=== PATIENT | female | born 1980 ===

== ENCOUNTER 2016-10-18 01:02 | Emergency (ER) | payer SELFPAY ==
[2016-10-18 01:13] VITALS: O2SAT 100
--- NOTE | 2016-10-18 01:41 | C.PDOC ---
History Of Present Illness Pt states she had some palpitations tonight. No f/c/n/v. No cp/. Speaking in complete sentences. Feels fine now. Time Seen by Provider: 10/18/16 01:41 Chief Complaint (Nursing): Palpitations History Per: Patient History/Exam Limitations: no limitations Onset/Duration Of Symptoms: Hrs Current Symptoms Are (Timing): Gone Associated Symptoms: Other (palpitations). denies: Chest Pain Quality Of Symptoms: Rapid Heart Rate Severity: Mild Pain Scale Rating Of: 3 Exacerbating Factor(s): Pos: None Recent travel outside of the [place]: No Additional History Per: Patient Past Medical History Reviewed: Historical Data, Nursing Documentation, Vital Signs Vital Signs: Last Vital Signs Temp 98.8 F 10/18/16 01:10 Pulse 80 10/18/16 01:25 Resp 13 10/18/16 01:10 BP 120/60 10/18/16 01:10 Pulse Ox 100 10/18/16 02:50 Family History: States: No Known Family Hx - Social History Hx Alcohol Use: No Hx Substance Use: No - Immunization History Hx Tetanus Toxoid Vaccination: No Hx Influenza Vaccination: No Hx Pneumococcal Vaccination: No Review Of Systems Constitutional: Negative for: Fever, Chills Cardiovascular: Positive for: Palpitations. Negative for: Chest Pain Respiratory: Negative for: Shortness of Breath Gastrointestinal: Negative for: Nausea, Vomiting, Abdominal Pain Genitourinary: Negative for: Dysuria Musculoskeletal: Negative for: Back Pain Skin: Negative for: Rash, Lesions, Jaundice, Bruising Neurological: Negative for: Weakness Psych: Negative for: Anxiety Physical Exam - Physical Exam Appears: Non-toxic, No Acute Distress Skin: Warm, Dry Head: Normacephalic Eye(s): bilateral: Normal Inspection Neck: Supple Chest: Symmetrical Cardiovascular: Rhythm Regular Respiratory: No Rales, No Rhonchi, No Wheezing Gastrointestinal/Abdominal: Soft, No Tenderness, No Distention Back: Normal Inspection Extremity: Normal ROM Extremity: Bilateral: Atraumatic, Normal Color And Temperature Neurological/Psych: Oriented x3, Normal Speech, Normal Cognition Gait: Steady ED Course And Treatment - Laboratory Results Result Diagrams: 10/18/16 02:14 10/18/16 02:14 ECG: Interpreted By Me, Viewed By Me ECG Rhythm: Sinus Rhythm (65), Nonspecific Changes O2 Sat by Pulse Oximetry: 100 Pulse Ox Interpretation: Normal - Radiology CXR: Interpreted by Me, Viewed By Me CXR Interpretation: No: Infiltrates, Fracture, Pnemothorax Progress Note: cardiac work up. Pt also states that she has very heavy periods. Spoke with the patient about her low hemoglobin and she will follow up in clinic. Encouraged to return if symptoms recur Reevaluation Time: 03:56 Reassessment Condition: Improved Disposition Counseled Patient/Family Regarding: Studies Performed, Diagnosis, Need For Followup - Disposition Referrals: [facility] [Outside] [facility] [Outside] Disposition: HOME/ ROUTINE Disposition Time: 01:41 Condition: FAIR Instructions: Palpitations (ED), Iron Deficiency Anemia (ED) Print Language: SAO TOMEAN - Clinical Impression Clinical Impression: Palpitations, Iron (Fe) deficiency anemia
[2016-10-18 02:17] LABS: BASO % 0.4 % (0.0-2.0); EOS # 0.1 K/uL (0.0-0.7); HEMATOCRIT 25.1 % (34.0-47.0); LYMPH % 23.1 % (20.0-40.0); MEAN CELL VOLUME 63.8 fL (81.0-99.0); MEAN CORPUSCULAR HEMOGLOBIN 19.9 pg (27.0-31.0); MEAN CORPUSCULAR HGB CONC 31.2 g/dL (33.0-37.0); MEAN PLATELET VOLUME 9.5 fL (7.2-11.7); MONO # 0.6 K/uL (0.0-0.8); MONO % 6.5 % (0.0-10.0); RED CELL DISTRIBUTION WIDTH 17.9 % (11.5-14.5); WHITE BLOOD COUNT 8.7 K/uL (4.8-10.8)
[2016-10-18 02:18] LABS: URINE BACTERIA RARE (<OCC); URINE BILIRUBIN NEGATIVE (NEGATIVE); URINE BLOOD NEGATIVE (NEGATIVE); URINE COLOR Straw (YELLOW); URINE GLUCOSE (UA) NORMAL (Normal); URINE KETONE NEGATIVE (NEGATIVE); URINE LEUKOCYTE ESTERASE NEG Leu/uL (Negative); URINE PROTEIN NEGATIVE (NEGATIVE); URINE UROBILINOGEN NORMAL mg/dL (0.2-1.0); WBC URINE < 1 /hpf (0-5)
[2016-10-18 02:25] LABS: CHLORIDE 102 mmol/L (98-107); POTASSIUM 3.6 mmol/L (3.6-5.2); SODIUM 141 mmol/L (132-148)
[2016-10-18 02:27] LABS: ALB/GLOB RATIO 1.2 (1.0-2.1); ALKALINE PHOSPHATASE 44 U/L (38-126); AST/SGOT 19 U/L (14-36); BILIRUBIN,TOTAL 0.2 mg/dL (0.2-1.3); CARBON DIOXIDE 25 mmol/L (22-30); GFR AFRICAN-AMERICAN > 60; TOTAL PROTEIN 7.3 g/dL (6.3-8.3)
[2016-10-18 02:28] LABS: ALT/SGPT 30 U/L (9-52); BLOOD UREA NITROGEN 16 mg/dL (7-17); CALCIUM 8.6 mg/dl (8.6-10.4); GLUCOSE,RANDOM 96 mg/dL (65-105)
[2016-10-18 02:58] LABS: THYROID STIMULATING HORMONE 0.65 mIU/L (0.46-4.68)
[2016-10-18 03:59] VITALS: BP 119/82; PULSE 72; RESP 18; TEMP 98.2
--- NOTE | 2016-10-18 08:06 | RAD ---
HISTORY: palpitations COMPARISON: No prior. TECHNIQUE: Chest PA and lateral FINDINGS: LUNGS: No active pulmonary disease. PLEURA: No significant pleural effusion identified. No pneumothorax apparent. CARDIOVASCULAR: Normal. OSSEOUS STRUCTURES: No significant abnormalities. VISUALIZED UPPER ABDOMEN: Normal. OTHER FINDINGS: None. IMPRESSION: No active disease.
--- NOTE | 2016-10-21 09:32 | CARD ---
APPROVED REPORT EKG Measurement Heart [id number] [id number] <Conclusion> Normal sinus rhythm with sinus arrhythmia Abnormal ECG
== END 2016-10-18 04:09 | disposition home or self-care (01) ==
LOC: C.ER 01:02
DX: R00.2 Palpitations (principal); D50.9 Iron deficiency anemia, unspecified

== ENCOUNTER 2016-11-01 19:59 | Emergency (ER) | payer SELFPAY ==
[2016-11-01 20:18] VITALS: RESP 20
--- NOTE | 2016-11-01 20:55 | C.PDOC ---
History Of Present Illness A 36 year old female presents to the emergency room with complaints of lethargy and shortness of breath on minimal exertion for 3 days. Patient was recently evaluated for the same complaints on 10/18/16 and was found to be anemic. Patient was referred to Gynecology after having a heavy menstrual period lasting 6 days and using 10 pads daily since an IUD was placed 5 yrs ago. Patient denies any chest pain, headaches, dizziness, fever, chills, nausea, vomiting, diarrhea, or any other complaints. Time Seen by Provider: 11/01/16 20:32 Chief Complaint (Nursing): Dizziness/Lightheaded History Per: Patient History/Exam Limitations: no limitations Onset/Duration Of Symptoms: Days (3) Current Symptoms Are (Timing): Still Present Activity At Onset Of Symptoms: Exertional Activity Associated Symptoms Preceding Syncopal Episode: No Predromal Symptoms (Sudden Onset) Seizure Or Post-ictal Symptoms: None Fall Associated With With Symptoms: No Severity: Mild Past Medical History Reviewed: Historical Data, Nursing Documentation, Vital Signs Vital Signs: Last Vital Signs Temp 98.8 F 11/01/16 20:15 Pulse 72 11/01/16 20:15 Resp 20 11/01/16 20:15 BP 101/55 L 11/01/16 20:15 Pulse Ox 100 11/01/16 21:57 - Medical History PMH: Anemia Family History: States: Unknown Family Hx - Social History Hx Alcohol Use: No Hx Substance Use: No - Immunization History Hx Tetanus Toxoid Vaccination: No Hx Influenza Vaccination: No Hx Pneumococcal Vaccination: No Review Of Systems Except As Marked, All Systems Reviewed And Found Negative. Constitutional: Positive for: Other (Lethargy). Negative for: Fever, Chills Cardiovascular: Negative for: Chest Pain Respiratory: Positive for: Shortness of Breath Gastrointestinal: Negative for: Nausea, Vomiting, Diarrhea Neurological: Negative for: Headache, Dizziness Physical Exam - Physical Exam Appears: Well, Non-toxic, No Acute Distress Skin: Pale, No Rash Head: Atraumatic, Normacephalic Eye(s): bilateral: Conjunctiva Pale Neck: Normal ROM, Supple Chest: Symmetrical, No Tenderness Cardiovascular: Rhythm Regular Respiratory: Normal Breath Sounds, No Rales, No Rhonchi, No Wheezing Gastrointestinal/Abdominal: Soft, No Tenderness, No Guarding, No Rebound Extremity: Normal ROM, No Tenderness Neurological/Psych: Oriented x3, Normal Speech ED Course And Treatment - Laboratory Results Result Diagrams: 11/01/16 20:52 11/01/16 20:52 Lab Interpretation: Abnormal (hgb/HCT improved from 7.8/25 but still microcytic. Fe 22 (37-120)) ECG: Interpreted By Me ECG Rhythm: Sinus Rhythm ECG Interpretation: Normal Rate From EC O2 Sat by Pulse Oximetry: 100 Pulse Ox Interpretation: Normal - Radiology CXR: Interpreted by Me CXR Interpretation: Yes: No Acute Disease Reevaluation Time: 21:53 Reassessment Condition: Improved - Physician Consult Information Outcome Of Conversation: 2129: d/w Dr. Limon- CAREER TRANSITION SPECIALIST Business Continuity Global Director- translating @ bedside - ok to f/u in office to remove IUD and consider other prophylactic methods and to f/u HGB levels. Will start Fe supplements today Medical Decision Making Medical Decision Making: Plan: -- EKG -- CXR -- Labs Menometrorraghia causing Fe Def anemia. IMPROVED from 2 weeks ago. Disposition Doctor Will See Patient In The: Office Counseled Patient/Family Regarding: Studies Performed, Diagnosis - Disposition Referrals: [facility] [Outside] [facility] [Outside] Neftaly Red MD [Staff Provider] - Disposition: HOME/ ROUTINE Disposition Time: 21:57 Condition: GOOD Additional Instructions: Presenta en la oficina con Dr. Braxton benavides (el viernes) a las de . Natalie el Leonor 325 mg CONSUELO veces al larry. Natalie Colace 100 mg (esuavesante de los heces) dos veces al larry (para prevenir estrenemiento debido al leonor) Wright Hemoglobina esta en 8.9 hoy (era 7.8 hace 2 semanas) Prescriptions: Docusate [Colace] 100 mg PO BID #60 cap Ferrous Sulfate [Iron] 325 mg PO TID #90 capsule.er Instructions: Iron Deficiency Anemia (ED), Menorrhagia (ED) Print Language: SLOVENIAN - Clinical Impression Clinical Impression: Iron (Fe) deficiency anemia, Menometrorrhagia - Scribe Statement The provider has reviewed the documentation as recorded by the Scribe Eric Lee All medical record entries made by the Scribe were at my direction and personally dictated by me. I have reviewed the chart and agree that the record accurately reflects my personal performance of the history, physical exam, medical decision making, and the department course for this patient. I have also personally directed, reviewed, and agree with the discharge instructions and disposition.
[2016-11-01 20:58] LABS: BASO # 0.1 K/uL (0.0-0.2); BASO % 0.5 % (0.0-2.0); EOS # 0.1 K/uL (0.0-0.7); EOS % 0.8 % (0.0-4.0); HEMATOCRIT 30.1 % (34.0-47.0); LYMPH # 2.4 K/uL (1.0-4.3); LYMPH % 22.8 % (20.0-40.0); MEAN CELL VOLUME 65.1 fL (81.0-99.0); MEAN CORPUSCULAR HEMOGLOBIN 19.3 pg (27.0-31.0); MEAN CORPUSCULAR HGB CONC 29.7 g/dL (33.0-37.0); MEAN PLATELET VOLUME 9.8 fL (7.2-11.7); MONO # 0.6 K/uL (0.0-0.8); MONO % 5.4 % (0.0-10.0); RED CELL DISTRIBUTION WIDTH 20.4 % (11.5-14.5); WHITE BLOOD COUNT 10.7 K/uL (4.8-10.8)
[2016-11-01 21:04] LABS: RBC URINE < 1 /hpf (0-3); URINE BACTERIA RARE (<OCC); URINE BILIRUBIN NEGATIVE (NEGATIVE); URINE BLOOD NEGATIVE (NEGATIVE); URINE COLOR Straw (YELLOW); URINE GLUCOSE (UA) NORMAL (Normal); URINE KETONE NEGATIVE (NEGATIVE); URINE LEUKOCYTE ESTERASE NEGATIVE Leu/uL (Negative); URINE PROTEIN NEGATIVE (NEGATIVE); URINE UROBILINOGEN NORMAL mg/dL (0.2-1.0); WBC URINE 4 /hpf (0-5)
[2016-11-01 21:05] LABS: CHLORIDE 100 mmol/L (98-107); POTASSIUM 3.8 mmol/L (3.6-5.2); SODIUM 135 mmol/L (132-148)
[2016-11-01 21:07] LABS: BILIRUBIN,TOTAL 0.2 mg/dL (0.2-1.3); GFR AFRICAN-AMERICAN > 60; IRON 22 ug/dL (37-170)
[2016-11-01 21:08] LABS: ALB/GLOB RATIO 1.3 (1.0-2.1); ALKALINE PHOSPHATASE 49 U/L (38-126); ALT/SGPT 15 U/L (9-52); AST/SGOT 15 U/L (14-36); BLOOD UREA NITROGEN 10 mg/dL (7-17); CARBON DIOXIDE 21 mmol/L (22-30); GLUCOSE,RANDOM 97 mg/dL (65-105); TOTAL PROTEIN 7.9 g/dL (6.3-8.3)
[2016-11-01 21:09] LABS: CALCIUM 8.5 mg/dl (8.6-10.4)
[2016-11-01 22:14] VITALS: BP 118/72; PULSE 85; TEMP 98; O2SAT 99
--- NOTE | 2016-11-02 08:25 | RAD ---
PROCEDURE: CHEST RADIOGRAPH, 1 VIEW HISTORY: Shortness of breath COMPARISON: None available. FINDINGS: LUNGS: Clear. PLEURA: No pneumothorax or pleural fluid seen. CARDIOVASCULAR: Normal. OSSEOUS STRUCTURES: No significant abnormalities. VISUALIZED UPPER ABDOMEN: Normal. OTHER FINDINGS: None. IMPRESSION: No active disease.
--- NOTE | 2016-11-03 06:30 | CARD ---
APPROVED REPORT EKG Measurement Heart [id number] MT 128P54 [id number] <Conclusion> Normal sinus rhythm Cannot rule out Anterior infarct, age undetermined Abnormal ECG
== END 2016-11-01 22:14 | disposition home or self-care (01) ==
LOC: C.ER 19:59
DX: D50.9 Iron deficiency anemia, unspecified (principal); N92.1 Excessive and frequent menstruation with irregular cycle
CPT/HCPCS: 71010; 80053; 81001; 83540; 83550; 83880; 84484; 84703; 85025; 85610; 85730; 86850; 86900; 93005; 99285; G0480

== ENCOUNTER 2016-11-08 10:22 | Emergency (ER) | payer MEDICAID ==
[2016-11-08 10:34] VITALS: O2SAT 100
[2016-11-08 11:31] LABS: BASO % 0.5 % (0.0-2.0); EOS # 0.1 K/uL (0.0-0.7); EOS % 0.7 % (0.0-4.0); HEMATOCRIT 31.8 % (34.0-47.0); LYMPH # 1.4 K/uL (1.0-4.3); LYMPH % 15.8 % (20.0-40.0); MEAN CORPUSCULAR HEMOGLOBIN 20.6 pg (27.0-31.0); MEAN PLATELET VOLUME 9.9 fL (7.2-11.7); MONO # 0.6 K/uL (0.0-0.8); MONO % 7.1 % (0.0-10.0); RED CELL DISTRIBUTION WIDTH 19.8 % (11.5-14.5); WHITE BLOOD COUNT 8.6 K/uL (4.8-10.8)
[2016-11-08 11:32] LABS: MEAN CELL VOLUME 68.7 fL (81.0-99.0)
--- NOTE | 2016-11-08 11:44 | RAD ---
PROCEDURE: CHEST RADIOGRAPH, 1 VIEW HISTORY: chest pain COMPARISON: 11/01/2016 FINDINGS: LUNGS: Clear. PLEURA: No pneumothorax or pleural fluid seen. CARDIOVASCULAR: Normal. OSSEOUS STRUCTURES: No significant abnormalities. VISUALIZED UPPER ABDOMEN: Normal. OTHER FINDINGS: None. IMPRESSION: No active disease.
--- NOTE | 2016-11-08 11:50 | C.PDOC ---
History Of Present Illness Patient is 36 yr old female with PMHx of anemia, presents to the ER with complaints of palpitations and SOB 4x since morning. Patient states she had similar symptoms in the past about 1 month ago--was told that her symptoms were secondary to anemia. Patient reports she is on the depo shot. Patient denies fever, chest pain, nausea, vomiting, abdominal pain, diarrhea, back pain, headache, weakness or numbness. Time Seen by Provider: 11/08/16 10:56 Chief Complaint (Nursing): Shortness Of Breath History Per: Patient History/Exam Limitations: no limitations Onset/Duration Of Symptoms: Sudden Onset (Since morning ) Past Medical History Reviewed: Historical Data, Nursing Documentation, Vital Signs Vital Signs: Last Vital Signs Temp 98.0 F 11/08/16 13:24 Pulse 88 11/08/16 13:24 Resp 16 11/08/16 13:24 BP 109/47 L 11/08/16 13:24 Pulse Ox 100 11/08/16 13:24 - Medical History PMH: Anemia Family History: States: Diabetes, Hypertension - Social History Hx Alcohol Use: No Hx Substance Use: No - Immunization History Hx Tetanus Toxoid Vaccination: Yes Hx Influenza Vaccination: No Hx Pneumococcal Vaccination: No Review Of Systems Except As Marked, All Systems Reviewed And Found Negative. Constitutional: Negative for: Fever Cardiovascular: Positive for: Palpitations. Negative for: Chest Pain Respiratory: Positive for: Shortness of Breath Gastrointestinal: Negative for: Nausea, Vomiting, Abdominal Pain, Diarrhea Neurological: Negative for: Weakness, Numbness, Headache Physical Exam - Physical Exam Appears: Well, Non-toxic, In Acute Distress (Mild) Skin: Normal Color, Warm, Dry, No Rash Head: Atraumatic, Normacephalic Eye(s): bilateral: Normal Inspection, PERRL, EOMI Ear(s): Bilateral: Normal Nose: Normal Oral Mucosa: Moist Tongue: Normal Appearing Lips: Normal Appearing Teeth: Normal Dentition Throat: Normal, No Erythema, No Exudate, No Drooling Neck: Normal, Normal ROM, Supple Chest: Symmetrical, No Tenderness Cardiovascular: Rhythm Regular, No Murmur Respiratory: Normal Breath Sounds, No Rales, No Rhonchi, No Stridor, No Wheezing Gastrointestinal/Abdominal: Normal Exam, Soft, No Tenderness, No Guarding, No Rebound Back: Normal Inspection Extremity: Normal ROM, No Swelling Extremity: Bilateral: Atraumatic, Normal ROM Neurological/Psych: Oriented x3 ED Course And Treatment - Laboratory Results Result Diagrams: 11/08/16 11:26 11/08/16 11:26 O2 Sat by Pulse Oximetry: 100 (RA) - Other Rad CXR X-Ray: Viewed By Me, Read By Radiologist Interpretation: PROCEDURE: CHEST RADIOGRAPH, 1 VIEW. HISTORY: chest pain. COMPARISON: 11/01/2016. FINDINGS: LUNGS: Clear. PLEURA: No pneumothorax or pleural fluid seen. CARDIOVASCULAR: Normal. OSSEOUS STRUCTURES: No significant abnormalities. VISUALIZED UPPER ABDOMEN: Normal. OTHER FINDINGS: None. IMPRESSION: No active disease. Medical Decision Making Medical Decision Making: INITIAL IMPRESSION: Palpitations and non-specific chest pain INITIAL PLAN: * CXR * EKG * Drug Screen * Troponin * D-Dimer * CBC * HCG Urine * Urinalysis * 1:14 pm--Pt feels better. Looks well. No Chest Pain. Will d/c home. Disposition Counseled Patient/Family Regarding: Studies Performed, Diagnosis, Need For Followup, Rx Given - Disposition Referrals: [facility] [Outside] Disposition: HOME/ ROUTINE Disposition Time: 13:13 Condition: STABLE Additional Instructions: Marko James, thank you for letting us take care of you today. Return to the ER if your symptoms worsen, or if any problems. Take the medication listed below as prescribed. Follow up with our [facility]. Call the phone number listed below to make an appointment. Prescriptions: Ranitidine HCl [Zantac] 1 tab PO BID #40 tablet Instructions: Chest Pain (ED) Forms: Gen Discharge Inst Mohawk Print Language: SURINAMESE - Clinical Impression Clinical Impression: Chest pain of uncertain etiology - Scribe Statement The provider has reviewed the documentation as recorded by the Victoriaibizabela Reyes Provider Attestation: All medical record entries made by the Victoriaibizabela were at my direction and personally dictated by me. I have reviewed the chart and agree that the record accurately reflects my personal performance of the history, physical exam, medical decision making, and the department course for this patient. I have also personally directed, reviewed, and agree with the discharge instructions and disposition.
[2016-11-08 11:55] LABS: CHLORIDE 106 mmol/L (98-107)
[2016-11-08 11:56] LABS: POTASSIUM 3.8 mmol/L (3.6-5.2); SODIUM 141 mmol/L (132-148)
[2016-11-08 11:58] LABS: ALB/GLOB RATIO 1.4 (1.0-2.1); ALKALINE PHOSPHATASE 47 U/L (38-126); AST/SGOT 22 U/L (14-36); BILIRUBIN,TOTAL 0.4 mg/dL (0.2-1.3); BLOOD UREA NITROGEN 10 mg/dL (7-17); CARBON DIOXIDE 19 mmol/L (22-30); GFR AFRICAN-AMERICAN > 60; TOTAL PROTEIN 7.9 g/dL (6.3-8.3)
[2016-11-08 11:59] LABS: ALT/SGPT 9 U/L (9-52); CALCIUM 8.5 mg/dl (8.6-10.4); GLUCOSE,RANDOM 94 mg/dL (65-105)
[2016-11-08] MEDS ORDERED: Sodium Chloride 0.9% 1,000 ML IV ONE (11:59)
[2016-11-08] MEDS ORDERED: Sodium Chloride 0.9% 1,000 ML ONE (12:21)
[2016-11-08 13:09] LABS: RBC URINE 4 /hpf (0-3); URINE BACTERIA RARE (<OCC); URINE BILIRUBIN NEGATIVE (NEGATIVE); URINE COLOR Straw (YELLOW); URINE GLUCOSE (UA) NORMAL (Normal); URINE KETONE NEGATIVE (NEGATIVE); URINE LEUKOCYTE ESTERASE 1+ Leu/uL (Negative); URINE PROTEIN NEGATIVE (NEGATIVE); URINE UROBILINOGEN NORMAL mg/dL (0.2-1.0); WBC URINE 4 /hpf (0-5)
[2016-11-08 13:10] LABS: URINE BLOOD TRACE (NEGATIVE)
[2016-11-08 13:28] VITALS: BP 109/47; PULSE 88; RESP 16; TEMP 98
--- NOTE | 2016-11-12 12:29 | CARD ---
APPROVED REPORT EKG Measurement Heart [id number] SC 126P52 [id number] <Conclusion> Normal sinus rhythm with sinus arrhythmia Cannot rule out Anterior infarct, age undetermined Abnormal ECG
--- NOTE | 2016-11-12 12:32 | CARD ---
APPROVED REPORT EKG Measurement Heart [id number] NH 138P51 [id number] <Conclusion> Normal sinus rhythm with sinus arrhythmia Possible Inferior infarct, age undetermined Cannot rule out Anterior infarct, age undetermined Abnormal ECG
== END 2016-11-08 13:29 | disposition home or self-care (01) ==
LOC: C.ER 10:22
DX: R07.9 Chest pain, unspecified (principal)
CPT/HCPCS: 71010; 80053; 80324; 80345; 80346; 80349; 80353; 80358; 80361; 81001; 82550; 83880; 83992; 84484; 84702; 84703; 85025; 85378; 86850; 86900; 93005; 96360; 99285; J7040

== ENCOUNTER 2016-11-14 18:28 | Emergency (ER) | payer MEDICAID ==
[2016-11-14 18:28] VITALS: BMI 22.3
[2016-11-14 18:39] VITALS: RESP 18
[2016-11-14 19:52] LABS: RBC URINE 1 /hpf (0-3); URINE BACTERIA RARE (<OCC); URINE BILIRUBIN NEGATIVE (NEGATIVE); URINE BLOOD NEGATIVE (NEGATIVE); URINE COLOR Yellow (YELLOW); URINE GLUCOSE (UA) NORMAL (Normal); URINE KETONE TRACE mg/dL (NEGATIVE); URINE LEUKOCYTE ESTERASE TRACE Leu/uL (Negative); URINE PROTEIN NEGATIVE (NEGATIVE); URINE UROBILINOGEN NORMAL mg/dL (0.2-1.0); WBC URINE 2 /hpf (0-5)
[2016-11-14 20:34] LABS: BASO % 0.4 % (0.0-2.0); EOS # 0.1 K/uL (0.0-0.7); EOS % 0.7 % (0.0-4.0); HEMATOCRIT 34.2 % (34.0-47.0); LYMPH # 2.2 K/uL (1.0-4.3); LYMPH % 26.3 % (20.0-40.0); MEAN CORPUSCULAR HEMOGLOBIN 22.3 pg (27.0-31.0); MEAN CORPUSCULAR HGB CONC 30.5 g/dL (33.0-37.0); MEAN PLATELET VOLUME 9.9 fL (7.2-11.7); MONO # 0.5 K/uL (0.0-0.8); MONO % 6.6 % (0.0-10.0); RED CELL DISTRIBUTION WIDTH 32.4 % (11.5-14.5); WHITE BLOOD COUNT 8.2 K/uL (4.8-10.8)
[2016-11-14 20:42] LABS: CHLORIDE 100 mmol/L (98-107); POTASSIUM 3.9 mmol/L (3.6-5.2); SODIUM 139 mmol/L (132-148)
--- NOTE | 2016-11-14 20:43 | C.PDOC ---
History Of Present Illness Patient is a 36 year old female who presents to the ER with a complaint of dizziness, chills, weakness, palpations, nausea and epigastric pain for the past week, with the dizziness worsening this morning. Patient had an appointment at [facility] for lab work but felt worse so she came to the ER. Denies any recently travel, sick contacts, chest pain, focal deficit, cough, vomiting, constipation, diarrhea, urinary symptoms, or bilateral extremity pain. Time Seen by Provider: 11/14/16 20:05 Chief Complaint (Nursing): Weakness/Neurological Deficit History Per: Patient History/Exam Limitations: no limitations Onset/Duration Of Symptoms: Days (7) Current Symptoms Are (Timing): Still Present Past Medical History Reviewed: Historical Data, Nursing Documentation, Vital Signs Vital Signs: Last Vital Signs Temp 98.8 F 11/14/16 22:26 Pulse 77 11/14/16 22:26 Resp 18 11/14/16 22:26 BP 119/72 11/14/16 22:26 Pulse Ox 100 11/14/16 22:26 - Medical History PMH: Anemia Family History: States: Unknown Family Hx, Diabetes, Hypertension - Social History Hx Alcohol Use: No Hx Substance Use: No - Immunization History Hx Tetanus Toxoid Vaccination: Yes Hx Influenza Vaccination: No Hx Pneumococcal Vaccination: No Review Of Systems Except As Marked, All Systems Reviewed And Found Negative. Constitutional: Positive for: Chills. Negative for: Fever Cardiovascular: Positive for: Palpitations. Negative for: Chest Pain Respiratory: Negative for: Cough, Shortness of Breath Gastrointestinal: Positive for: Nausea, Abdominal Pain (Epigastric). Negative for: Vomiting, Diarrhea Genitourinary: Negative for: Dysuria, Hematuria, Vaginal Discharge, Vaginal Bleeding Neurological: Positive for: Weakness, Dizziness Physical Exam - Physical Exam Appears: Well, Non-toxic, No Acute Distress, Other (Resting comfortably) Skin: Normal Color, Warm, Dry Head: Atraumatic, Normacephalic Oral Mucosa: Moist Throat: Normal, No Erythema Lymphatic: No Adenopathy (cervical) Chest: Symmetrical Cardiovascular: Rhythm Regular Respiratory: Normal Breath Sounds, No Rales, No Rhonchi, No Wheezing Gastrointestinal/Abdominal: Soft, Tenderness (mild, mid epigastic, deep palpation), No Distention, No Guarding, No Rebound Pulses: Left Femoral: Normal, Right Femoral: Normal, Left Dorsalis Pedis: Normal , Right Dorsalis Pedis: Normal Neurological/Psych: Oriented x3, Normal Speech, Normal Cognition, Other (5/5 muscle strength) ED Course And Treatment - Laboratory Results Result Diagrams: 11/14/16 20:28 11/14/16 20:28 Lab Interpretation: No Acute Changes (TSH low with normal T4) O2 Sat by Pulse Oximetry: 97 (room air) Pulse Ox Interpretation: Normal Progress Note: Blood work ordered. Reevaluation Time: 22:37 Reassessment Condition: Unchanged (Patient still c/o abdominal pain but abdomen is soft with no localized tenderness.) Disposition Counseled Patient/Family Regarding: Studies Performed, Diagnosis, Need For Followup - Disposition Referrals: [facility] [Outside] Disposition: HOME/ ROUTINE Disposition Time: 22:38 Condition: STABLE Instructions: Dizziness (ED), Epigastric Pain (ED) - Clinical Impression Clinical Impression: Dizziness, Epigastric abdominal pain - Scribe Statement The provider has reviewed the documentation as recorded by the Scribizabela Khan All medical record entries made by the Victoriaibizabela were at my direction and personally dictated by me. I have reviewed the chart and agree that the record accurately reflects my personal performance of the history, physical exam, medical decision making, and the department course for this patient. I have also personally directed, reviewed, and agree with the discharge instructions and disposition.
[2016-11-14 20:45] LABS: ALB/GLOB RATIO 1.6 (1.0-2.1); ALKALINE PHOSPHATASE 36 U/L (38-126); ALT/SGPT 11 U/L (9-52); AST/SGOT 16 U/L (14-36); BILIRUBIN,TOTAL 0.4 mg/dL (0.2-1.3); BLOOD UREA NITROGEN 14 mg/dL (7-17); CALCIUM 8.7 mg/dl (8.6-10.4); CARBON DIOXIDE 23 mmol/L (22-30); GFR AFRICAN-AMERICAN > 60; GLUCOSE,RANDOM 104 mg/dL (65-105); TOTAL PROTEIN 7.4 g/dL (6.3-8.3)
[2016-11-14 22:00] LABS: FREE T4 1.25 ng/dL (0.78-2.19)
[2016-11-14 22:14] LABS: THYROID STIMULATING HORMONE 0.06 mIU/L (0.46-4.68)
[2016-11-14 22:26] VITALS: BP 119/72; PULSE 77; TEMP 98.8
[2016-11-14 22:32] VITALS: O2SAT 97
== END 2016-11-14 22:47 | disposition home or self-care (01) ==
LOC: C.ER 18:28
DX: R42 Dizziness and giddiness (principal); R10.13 Epigastric pain

== ENCOUNTER 2016-11-17 08:42 | Emergency (ER) | payer MEDICAID ==
[2016-11-17 08:42] VITALS: BMI 22.3
[2016-11-17 09:27] VITALS: RESP 16
--- NOTE | 2016-11-17 09:29 | C.PDOC ---
History Of Present Illness 36 year old female presents to the ED with complaints of palpitations and the sensation of her "heart racing" for 10 minutes today. She states she has been having episodes on and off for the last two months of the heart racing sensations. Patient was recently diagnosed with hypothyroidism and began new medications. Upon arrival, she was asymptomatic. Patient denies any SOB, chest pain, or any other complaints at this time. Time Seen by Provider: 11/17/16 09:17 Chief Complaint (Nursing): Palpitations History Per: Patient History/Exam Limitations: no limitations Onset/Duration Of Symptoms: Hrs Current Symptoms Are (Timing): Gone Associated Symptoms: denies: Chest Pain, Dizziness, Focal Weakness Quality Of Symptoms: Asymptomatic Past Medical History Reviewed: Historical Data, Nursing Documentation, Vital Signs Vital Signs: Last Vital Signs Temp 97.8 F 11/17/16 09:43 Pulse 60 11/17/16 09:43 Resp 16 11/17/16 09:43 BP 114/60 11/17/16 09:43 Pulse Ox 98 11/17/16 15:09 - Medical History PMH: Anemia, Hypothyroidism Family History: States: Unknown Family Hx, Diabetes, Hypertension - Social History Hx Alcohol Use: No Hx Substance Use: No - Immunization History Hx Tetanus Toxoid Vaccination: Yes Hx Influenza Vaccination: No Hx Pneumococcal Vaccination: No Review Of Systems Constitutional: Negative for: Fever, Chills, Sweats Eyes: Negative for: Vision Change Cardiovascular: Positive for: Palpitations. Negative for: Chest Pain, Light Headedness Respiratory: Negative for: Cough, Shortness of Breath Gastrointestinal: Negative for: Nausea, Vomiting Neurological: Negative for: Headache, Dizziness Physical Exam - Physical Exam Appears: Non-toxic, No Acute Distress Skin: Warm, Dry Head: Atraumatic, Normacephalic Eye(s): bilateral: Normal Inspection Neck: Normal Chest: Symmetrical, No Deformity, Other (chest non-tender) Cardiovascular: Rhythm Regular Respiratory: No Accessory Muscle Use, No Rales, No Rhonchi, No Stridor, No Wheezing Extremity: Bilateral: Atraumatic, Normal Color And Temperature, Normal ROM Neurological/Psych: Oriented x3, Normal Speech Gait: Steady ED Course And Treatment O2 Sat by Pulse Oximetry: 98 Medical Decision Making Medical Decision Makin y.o female with history of hypothyroidism and palpitations EKG obtained and reviewed showing sinus rhythm with sinus arrhythmia at 61 bpm, normal axis and no ischemic changes Prior record reviewed, patient recently seen in ED 11/14/16 with workup and labs showing low T4. Patient remained well with stable vital signs in ED during evaluation. Patient currently asymptomatic and feels comfortable going home. Patient understands to continue her medication and will follow up with clinic and cardiology this week. Disposition Counseled Patient/Family Regarding: Diagnosis, Need For Followup - Disposition Disposition: HOME/ ROUTINE Disposition Time: 09:30 Condition: STABLE Additional Instructions: Por favor realice el seguimiento segn lo programado en la clnica con el cardi logo [employer] [facility] [employer] segn lo prescrito Instructions: Hypothyroidism (ED), Palpitations (ED) Print Language: KUWAITI - POA Present On Arrival: None - Clinical Impression Clinical Impression: Hypothyroidism, Palpitations - Scribe Statement The provider has reviewed the documentation as recorded by the Scribe Jessica Jones All medical record entries made by the Scribe were at my direction and personally dictated by me. I have reviewed the chart and agree that the record accurately reflects my personal performance of the history, physical exam, medical decision making, and the department course for this patient. I have also personally directed, reviewed, and agree with the discharge instructions and disposition.
[2016-11-17 09:43] VITALS: BP 114/60; PULSE 60; TEMP 97.8
[2016-11-17 15:07] VITALS: O2SAT 98
== END 2016-11-17 09:43 | disposition home or self-care (01) ==
LOC: C.ER 08:42
DX: R00.2 Palpitations (principal); E03.9 Hypothyroidism, unspecified

== ENCOUNTER 2016-12-01 23:34 | Emergency (ER) | payer MEDICAID ==
[2016-12-01 23:35] VITALS: BMI 22.3
[2016-12-01 23:45] VITALS: RESP 16; O2SAT 100
--- NOTE | 2016-12-02 00:20 | C.PDOC ---
History Of Present Illness Patient is a 36 year old female who presents to the ER with a complaint of palpitations. Patient was seen twice in the ER over the past several weeks where she was diagnosed with hyperthyroidism. Patient followed up with [facility] where she was on started Tapazole which she has taken everyday. Patient also reports having a athletic monitor for a week and a half. Patient states she today she had increased palpitations, weakness, and lightheadedness. Patient has not had any arrhythmias on the monitor since arrival. Denies any fever, chills, or chest pain. Time Seen by Provider: 12/01/16 23:50 Chief Complaint (Nursing): Palpitations History Per: Patient History/Exam Limitations: no limitations Onset/Duration Of Symptoms: Hrs (Today) Current Symptoms Are (Timing): Still Present Reports Recently: Seen In ED (twice) Recent travel outside of the [place]: No Past Medical History Reviewed: Historical Data, Nursing Documentation, Vital Signs Vital Signs: Last Vital Signs Temp 97.7 F 12/01/16 23:39 Pulse 69 12/01/16 23:39 Resp 16 12/01/16 23:39 BP 123/78 12/01/16 23:39 Pulse Ox 100 12/02/16 00:30 - Medical History PMH: Anemia, Hyperthyroidism, Hypothyroidism Surgical History: No Surg Hx Family History: States: Unknown Family Hx, Diabetes, Hypertension - Social History Hx Alcohol Use: No Hx Substance Use: No - Immunization History Hx Tetanus Toxoid Vaccination: Yes Hx Influenza Vaccination: No Hx Pneumococcal Vaccination: No Review Of Systems Constitutional: Negative for: Fever, Chills Cardiovascular: Positive for: Palpitations. Negative for: Chest Pain Neurological: Positive for: Weakness, Other (lightheadedness) Physical Exam - Physical Exam Appears: Well, Non-toxic Skin: Normal Color, Warm, Dry Head: Atraumatic, Normacephalic Oral Mucosa: Moist Chest: Symmetrical, No Tenderness Cardiovascular: Rhythm Regular, No Murmur Respiratory: Normal Breath Sounds, No Rales, No Rhonchi, No Wheezing Gastrointestinal/Abdominal: Soft, No Tenderness Neurological/Psych: Oriented x3, Normal Speech, Normal Cognition ED Course And Treatment - Laboratory Results Result Diagrams: 12/02/16 00:19 12/02/16 00:19 Lab Interpretation: No Acute Changes ECG: Interpreted By Me ECG Rhythm: Sinus Rhythm (with poor R wave to V4 c/w possible anterior infarct ? age.) O2 Sat by Pulse Oximetry: 100 Pulse Ox Interpretation: Normal Reevaluation Time: 00:57 Reassessment Condition: Improved (Patient remains comfortable in ED.) Medical Decision Making Medical Decision Making: Plan: * EKG * Bloodwork Disposition Counseled Patient/Family Regarding: Studies Performed, Diagnosis, Need For Followup - Disposition Referrals: [facility] [Outside] Disposition: HOME/ ROUTINE Disposition Time: 00:58 Condition: STABLE - Clinical Impression Clinical Impression: Palpitations - Scribe Statement The provider has reviewed the documentation as recorded by the Scribe Jovi Khan All medical record entries made by the Scribe were at my direction and personally dictated by me. I have reviewed the chart and agree that the record accurately reflects my personal performance of the history, physical exam, medical decision making, and the department course for this patient. I have also personally directed, reviewed, and agree with the discharge instructions and disposition.
[2016-12-02 00:29] LABS: BASO % 0.3 % (0.0-2.0); EOS # 0.2 K/uL (0.0-0.7); EOS % 2.4 % (0.0-4.0); HEMATOCRIT 36.9 % (34.0-47.0); LYMPH # 2.3 K/uL (1.0-4.3); LYMPH % 30.6 % (20.0-40.0); MEAN CELL VOLUME 80.3 fL (81.0-99.0); MEAN CORPUSCULAR HEMOGLOBIN 25.6 pg (27.0-31.0); MEAN CORPUSCULAR HGB CONC 31.9 g/dL (33.0-37.0); MEAN PLATELET VOLUME 9.3 fL (7.2-11.7); MONO # 0.6 K/uL (0.0-0.8); MONO % 7.6 % (0.0-10.0); NRBC % 0.3 % (0.0-2.0); RED CELL DISTRIBUTION WIDTH 32.6 % (11.5-14.5); WHITE BLOOD COUNT 7.5 K/uL (4.8-10.8)
[2016-12-02 00:33] LABS: CHLORIDE 103 mmol/L (98-107); SODIUM 139 mmol/L (132-148)
[2016-12-02 00:34] LABS: POTASSIUM 3.6 mmol/L (3.6-5.2)
[2016-12-02 00:36] LABS: ALB/GLOB RATIO 1.5 (1.0-2.1); ALKALINE PHOSPHATASE 43 U/L (38-126); ALT/SGPT 19 U/L (9-52); AST/SGOT 16 U/L (14-36); BILIRUBIN,TOTAL 0.4 mg/dL (0.2-1.3); BLOOD UREA NITROGEN 10 mg/dL (7-17); CARBON DIOXIDE 25 mmol/L (22-30); GFR AFRICAN-AMERICAN > 60; GLUCOSE,RANDOM 101 mg/dL (65-105); TOTAL PROTEIN 7.1 g/dL (6.3-8.3)
[2016-12-02 00:37] LABS: CALCIUM 8.5 mg/dl (8.6-10.4)
[2016-12-02 00:53] LABS: T3 UPTAKE 34.8 % (23.0-41.0)
[2016-12-02 00:54] LABS: T4 7.08 ug/dL (5.5-11.0)
[2016-12-02 01:07] LABS: THYROID STIMULATING HORMONE 0.85 mIU/L (0.46-4.68)
[2016-12-02 01:08] VITALS: BP 106/64; PULSE 68; TEMP 98.2
--- NOTE | 2016-12-03 15:40 | CARD ---
APPROVED REPORT EKG Measurement Heart [id number] PA 130P21 [id number] <Conclusion> Normal sinus rhythm Cannot rule out Anterior infarct, age undetermined Abnormal ECG
== END 2016-12-02 01:38 | disposition home or self-care (01) ==
LOC: C.ER 23:34
DX: R00.2 Palpitations (principal)

== ENCOUNTER 2016-12-16 15:21 | Emergency (ER) | payer MEDICAID ==
[2016-12-16 15:21] VITALS: BMI 22.3
[2016-12-16 15:28] VITALS: O2SAT 100
--- NOTE | 2016-12-16 16:26 | C.PDOC ---
History Of Present Illness Patient is a 36 y/o female, whose PMHx includes hyperthyroidism, presents to the ED for evaluation of fever, runny nose, throat pain, cough with yellow sputum, body aches, and headache since yesterday. Patient reports taking a [employer] brand cold medicine last night which caused her to develop palpitations. Pt denies taking any other medications today. Pt notes that her daughter at home also has cough. Otherwise, denies any shortness of breath, wheezing, chest pain, nausea, vomiting, or any other associated symptoms at this time. Time Seen by Provider: 12/16/16 16:01 Chief Complaint (Nursing): Cough, Cold, Congestion History Per: Patient History/Exam Limitations: no limitations Onset/Duration Of Symptoms: Days (1) Current Symptoms Are (Timing): Still Present Location Of Pain: Throat, Headache Sick Contacts (Context): Family Member(s) (daughter) Associated Symptoms: Fever, Sore Throat, Cough, Sputum (yellow). denies: Neck Pain, Sinus Drainage, Nasal Congestion, Nausea, Vomiting, Diarrhea Ear Symptoms: Bilateral: None Recent travel outside of the [place]: No Additional History Per: Patient Past Medical History Reviewed: Historical Data, Nursing Documentation, Vital Signs Vital Signs: Last Vital Signs Temp 98.5 F 12/16/16 17: Pulse 92 H 12/16/16 17:17 Resp 18 12/16/16 17:17 BP 110/65 12/16/16 17:17 Pulse Ox 100 12/16/16 22:55 - Medical History PMH: Anemia, Hyperthyroidism Family History: States: Diabetes, Hypertension - Social History Hx Tobacco Use: No Hx Alcohol Use: No Hx Substance Use: No - Immunization History Hx Tetanus Toxoid Vaccination: Yes Hx Influenza Vaccination: No Hx Pneumococcal Vaccination: No Review Of Systems Constitutional: Positive for: Fever, Other (body aches) ENT: Positive for: Nose Discharge (rhinorrhea), Throat Pain Cardiovascular: Negative for: Chest Pain, Palpitations, Light Headedness Respiratory: Positive for: Cough, Sputum (yellow). Negative for: Shortness of Breath, Hemoptysis, Wheezing Gastrointestinal: Negative for: Nausea, Vomiting Neurological: Positive for: Headache. Negative for: Dizziness Physical Exam - Physical Exam Appears: Well, Non-toxic, No Acute Distress Skin: Normal Color, Warm, Dry Head: Atraumatic, Normacephalic Eye(s): bilateral: Normal Inspection, PERRL, EOMI Ear(s): Bilateral: Normal Nose: Normal Oral Mucosa: Moist Throat: Erythema (mild), No Exudate Neck: Normal ROM, Supple Lymphatic: Other (tender submandibular nodes) Chest: Symmetrical, No Tenderness Cardiovascular: Rhythm Regular, No Murmur Respiratory: Normal Breath Sounds, No Rales, No Rhonchi, No Wheezing Neurological/Psych: Oriented x3, Normal Speech, Normal Cognition ED Course And Treatment O2 Sat by Pulse Oximetry: 100 (on RA) Pulse Ox Interpretation: Normal Progress Note: Patient was given Tylenol in the ER. On reassessment, patient reports feeling better. Disposition Counseled Patient/Family Regarding: Diagnosis, Need For Followup, Rx Given - Disposition Referrals: Henrietta Triplett MD [Medical Doctor] - Disposition: HOME/ ROUTINE Disposition Time: 16:27 Condition: STABLE Additional Instructions: Follow up with your doctor in a few days. Drink increased fluids. Do not take the Zola cold medicine anymore. Avoid dairy products for a few days. Take Tylenol or Motrin for fever or body pain. Take Claritin once a day for runny nose. Prescriptions: Loratadine [Claritin] 10 mg PO DAILY #14 tab Instructions: Upper Respiratory Infection (ED) Forms: General Discharge Instructions, Work Excuse Print Language: LEBANESE - Clinical Impression Clinical Impression: Upper respiratory infection - PA / WHOLESALE BUYER / Resident Statement MD/ has reviewed & agrees with the documentation as recorded. - Scribe Statement The provider has reviewed the documentation as recorded by the Victoriaibizabela Scherer All medical record entries made by the Melvina were at my direction and personally dictated by me. I have reviewed the chart and agree that the record accurately reflects my personal performance of the history, physical exam, medical decision making, and the department course for this patient. I have also personally directed, reviewed, and agree with the discharge instructions and disposition.
[2016-12-16 17:18] VITALS: BP 110/65; PULSE 92; RESP 18; TEMP 98.5
== END 2016-12-16 17:18 | disposition home or self-care (01) ==
LOC: C.ER 15:21
DX: J06.9 Acute upper respiratory infection, unspecified (principal)

== ENCOUNTER 2017-02-06 22:40 | Emergency (ER) | payer MEDICAID ==
[2017-02-06 22:41] VITALS: BMI 22.3
[2017-02-06 23:12] VITALS: O2SAT 100
--- NOTE | 2017-02-06 23:54 | C.PDOC ---
History Of Present Illness 36 year old female who presents to the ER with a complaint of a left sided headache for the past 3 days. Patient is also complaining of mild stuffiness, nasal congestion, and tingling pain to the left arm and left leg. Denies vision changes, fever, chills, or neck pain. Time Seen by Provider: 02/06/17 23:37 Chief Complaint (Nursing): Headache History Per: Patient History/Exam Limitations: no limitations Onset/Duration Of Symptoms: Days (3) Current Symptoms Are (Timing): Still Present Quality: Other (Tingling) Preceeding Symptoms: None Recent travel outside of the [place]: No Past Medical History Reviewed: Historical Data, Nursing Documentation, Vital Signs Vital Signs: Last Vital Signs Temp 98.1 F 02/06/17 23:24 Pulse 60 02/06/17 23:24 Resp 13 02/06/17 23:24 BP 116/72 02/06/17 23:24 Pulse Ox 100 02/07/17 00:50 - Medical History PMH: Anemia, Hyperthyroidism, Hypothyroidism Surgical History: No Surg Hx Family History: States: Diabetes, Hypertension - Social History Hx Tobacco Use: No Hx Alcohol Use: No Hx Substance Use: No - Immunization History Hx Tetanus Toxoid Vaccination: Yes Hx Influenza Vaccination: No Hx Pneumococcal Vaccination: No Review Of Systems Constitutional: Negative for: Fever, Chills Eyes: Negative for: Vision Change Musculoskeletal: Positive for: Arm Pain (Left), Leg Pain (Left). Negative for: Neck Pain Neurological: Positive for: Headache Physical Exam - Physical Exam Appears: Non-toxic Skin: Normal Color, Warm, Dry Head: Atraumatic, Normacephalic Oral Mucosa: Moist Chest: Symmetrical, No Tenderness Cardiovascular: Rhythm Regular, No Murmur Respiratory: Normal Breath Sounds, No Rales, No Rhonchi, No Wheezing Gastrointestinal/Abdominal: Soft, No Tenderness Neurological/Psych: Oriented x3, Normal Speech, Normal Cognition ED Course And Treatment - Laboratory Results Result Diagrams: 02/06/17 00:01 02/06/17 00:01 Lab Interpretation: No Acute Changes O2 Sat by Pulse Oximetry: 100 (Room air) Pulse Ox Interpretation: Normal - CT Scan/US CT Head Other Rad Studies (CT/US): Read By Radiologist, Radiology Report Reviewed CT/US Interpretation: EXAM: CT Head Without Intravenous Contrast. CLINICAL HISTORY: 36 years old, female; Pain; Headache and other: Left side body pain. TECHNIQUE: Axial computed tomography images of the head/brain without intravenous contrast. This CT exam. was performed using one or more of the following dose reduction techniques: automated exposure. control, adjustment of the mA and/or kV according to patient size, and/or use of iterative. reconstruction technique. COMPARISON: No relevant prior studies available. FINDINGS: Brain: Unremarkable. No hemorrhage. No significant white matter disease. No edema. Ventricles: Unremarkable. No ventriculomegaly. Bones/joints : Unremarkable. No acute fracture. Soft tissues: Unremarkable. Sinuses: Unremarkable as visualized. No acute sinusitis. Mastoid air cells: Unremarkable as visualized. No mastoid effusion. IMPRESSION: No evidence of acute intracranial pathology. Progress Note: Head CT, blood work, and urinalysis ordered. Toradol administered Reevaluation Time: 00:48 Reassessment Condition: Improved Disposition - Disposition Disposition: HOME/ ROUTINE Disposition Time: 00:56 Condition: IMPROVED Instructions: Acute Headache (ED) Print Language: MAURITIAN - Clinical Impression Clinical Impression: Headache - Scribe Statement The provider has reviewed the documentation as recorded by the Scribe Jovi Khan All medical record entries made by the Victoriaibizabela were at my direction and personally dictated by me. I have reviewed the chart and agree that the record accurately reflects my personal performance of the history, physical exam, medical decision making, and the department course for this patient. I have also personally directed, reviewed, and agree with the discharge instructions and disposition.
[2017-02-07 00:11] LABS: BASO % 0.5 % (0.0-2.0); EOS # 0.2 K/uL (0.0-0.7); MEAN CORPUSCULAR HEMOGLOBIN 29.4 pg (27.0-31.0); MONO # 0.4 K/uL (0.0-0.8)
[2017-02-07 00:18] LABS: EOS % 2.7 % (0.0-4.0); HEMATOCRIT 39.8 % (34.0-47.0); LYMPH # 2.5 K/uL (1.0-4.3); LYMPH % 35.8 % (20.0-40.0); MEAN CORPUSCULAR HGB CONC 33.1 g/dL (33.0-37.0); MEAN PLATELET VOLUME 9.6 fL (7.2-11.7); MONO % 6.5 % (0.0-10.0); NRBC % 0.1 % (0.0-2.0); RED CELL DISTRIBUTION WIDTH 14.5 % (11.5-14.5); WHITE BLOOD COUNT 6.9 K/uL (4.8-10.8)
[2017-02-07 00:41] LABS: CHLORIDE 98 mmol/L (98-107); POTASSIUM 4.3 mmol/L (3.6-5.2); SODIUM 136 mmol/L (132-148)
[2017-02-07 00:44] LABS: ALB/GLOB RATIO 1.4 (1.0-2.1); ALKALINE PHOSPHATASE 49 U/L (38-126); AST/SGOT 32 U/L (14-36); BILIRUBIN,TOTAL 0.5 mg/dL (0.2-1.3); BLOOD UREA NITROGEN 13 mg/dL (7-17); CARBON DIOXIDE 27 mmol/L (22-30); GFR AFRICAN-AMERICAN > 60; GLUCOSE,RANDOM 91 mg/dL (65-105); TOTAL PROTEIN 7.6 g/dL (6.3-8.3)
[2017-02-07 00:45] LABS: ALT/SGPT 27 U/L (9-52)
[2017-02-07 01:03] VITALS: BP 101/63; PULSE 68; RESP 18; TEMP 98.5
--- NOTE | 2017-02-07 08:09 | CT ---
PROCEDURE: CT HEAD WITHOUT CONTRAST. HISTORY: Headache COMPARISON: None available. TECHNIQUE: Axial computed tomography images were obtained through the head/brain without intravenous contrast. Radiation dose: Total exam DLP = 796 mGy-cm. This CT exam was performed using one or more of the following dose reduction techniques: Automated exposure control, adjustment of the mA and/or kV according to patient size, and/or use of iterative reconstruction technique. FINDINGS: HEMORRHAGE: No intracranial hemorrhage. BRAIN: No mass effect or edema. No atrophy or chronic microvascular ischemic changes. VENTRICLES: Unremarkable. No hydrocephalus. CALVARIUM: Unremarkable. PARANASAL SINUSES: Unremarkable as visualized. No significant inflammatory changes. MASTOID AIR CELLS: Unremarkable as visualized. No inflammatory changes. OTHER FINDINGS: None. IMPRESSION: No acute intracranial abnormality. If headache or focal neurologic deficit persists, consider MRI. These findings were preliminarily reported at 12:34 a.m. on 02/07/[address] Boni Smith from [facility].
== END 2017-02-07 01:03 | disposition home or self-care (01) ==
LOC: C.ER 22:40
DX: R51 Headache (principal)
CPT/HCPCS: 70450; 80053; 82948; 84703; 85025; 96374; 99285; J1885

== ENCOUNTER 2017-03-11 00:45 | Emergency (ER) | payer MEDICAID, OTHER ==
[2017-03-11 00:45] VITALS: BMI 22.3
[2017-03-11] MEDS ORDERED: Sodium Chloride 0.9% 1,000 ML IV ONE (01:06)
[2017-03-11 02:03] LABS: BASO % 0.3 % (0.0-2.0); EOS # 0.3 K/uL (0.0-0.7); EOS % 2.5 % (0.0-4.0); HEMOGLOBIN 11.8 g/dL (11.0-16.0); LYMPH # 2.6 K/uL (1.0-4.3); LYMPH % 25.7 % (20.0-40.0); MEAN CELL VOLUME 92.5 fL (81.0-99.0); MEAN CORPUSCULAR HEMOGLOBIN 31.7 pg (27.0-31.0); MEAN CORPUSCULAR HGB CONC 34.3 g/dL (33.0-37.0); MEAN PLATELET VOLUME 9.8 fL (7.2-11.7); MONO # 0.7 K/uL (0.0-0.8); MONO % 6.5 % (0.0-10.0); NEUT # 6.6 K/uL (1.8-7.0); RBC 3.71 Mil/uL (3.80-5.20); WHITE BLOOD COUNT 10.2 K/uL (4.8-10.8)
[2017-03-11 02:04] LABS: HCG,QUALITATIVE URINE NEGATIVE (NEGATIVE); SQUAMOUS EPITHIAL 5 /hpf (0-5); URINE BACTERIA RARE (<OCC); URINE BILIRUBIN NEGATIVE (NEGATIVE); URINE BLOOD NEGATIVE (NEGATIVE); URINE CLARITY Clear (Clear); URINE COLOR Straw (YELLOW); URINE GLUCOSE (UA) NORMAL (Normal); URINE LEUKOCYTE ESTERASE NEG Leu/uL (Negative); URINE NITRATE NEGATIVE (NEGATIVE); URINE PROTEIN NEGATIVE (NEGATIVE); URINE UROBILINOGEN NORMAL mg/dL (0.2-1.0)
[2017-03-11 02:28] LABS: ALBUMIN 3.7 g/dL (3.5-5.0)
[2017-03-11 02:31] LABS: ALB/GLOB RATIO 1.2 (1.0-2.1); ALT/SGPT 23 U/L (9-52); AST/SGOT 13 U/L (14-36); BLOOD UREA NITROGEN 16 mg/dL (7-17); GFR AFRICAN-AMERICAN > 60; GFR NON-AFRICAN AMERICAN > 60
[2017-03-11 02:32] LABS: CALCIUM 8.6 mg/dl (8.6-10.4)
[2017-03-11 02:40] LABS: B-TYPE NATRIURETIC PEPTIDE 36.4 pg/mL (0-450)
--- NOTE | 2017-03-11 03:03 | C.PDOC ---
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 Time Seen by Provider: 03/11/17 01:00 Chief Complaint (Nursing): Palpitations History Per: Patient History/Exam Limitations: no limitations Onset/Duration Of Symptoms: Mins Current Symptoms Are (Timing): Gone Current Respiratory Medications: See Home Med List, None Additional History Per: Patient Past Medical History Vital Signs: Last Vital Signs Temp 97.1 F L 03/11/17 00:59 Pulse 77 03/11/17 00:59 Resp 20 03/11/17 00:59 BP 132/62 03/11/17 00:59 Pulse Ox 100 03/11/17 00:59 - Medical History PMH: Anemia, Hyperthyroidism, Hypothyroidism Family History: States: Unknown Family Hx, Diabetes, Hypertension - Social History Hx Tobacco Use: No Hx Alcohol Use: No Hx Substance Use: No - Immunization History Hx Tetanus Toxoid Vaccination: Yes Hx Influenza Vaccination: No Hx Pneumococcal Vaccination: No Review Of Systems Except As Marked, All Systems Reviewed And Found Negative. Physical Exam - Physical Exam Appears: Well Skin: Normal Color Head: Atraumatic Eye(s): bilateral: Normal Inspection Cardiovascular: Rhythm Regular Respiratory: Normal Breath Sounds Gastrointestinal/Abdominal: Normal Exam, Soft, Other (not gravid) Neurological/Psych: Oriented x3 ED Course And Treatment - Laboratory Results Result Diagrams: 03/11/17 01:58 03/11/17 01:58 Lab Interpretation: Normal (trop neg.) Urine POC: Negative ECG: Interpreted By Me ECG Rhythm: Sinus Rhythm ECG Interpretation: Normal Rate From EC O2 Sat by Pulse Oximetry: 100 Progress Note: IVF's Reevaluation Time: 03:06 Reassessment Condition: Unchanged (remains asymptomatic.) Medical Decision Making Medical Decision Making: NOT wanted w/u and thyroid w/u but pending outpatient OBGYN visit earlier today. Disposition Doctor Will See Patient In The: Office Counseled Patient/Family Regarding: Studies Performed, Diagnosis - Disposition Disposition: HOME/ ROUTINE Disposition Time: 03:07 Condition: GOOD Forms: [facility] (Yakut) - Clinical Impression Clinical Impression: Palpitations
[2017-03-11 03:16] VITALS: BP 103/56; PULSE 85; RESP 12; TEMP 98.3; O2SAT 99
--- NOTE | 2017-03-11 10:53 | CARD ---
APPROVED REPORT EKG Measurement Heart [id number] [place] 144P48 [id number] <Conclusion> Normal sinus rhythm Normal ECG
== END 2017-03-11 03:18 | disposition home or self-care (01) ==
LOC: C.ER 00:45
DX: R00.2 Palpitations (principal)
CPT/HCPCS: 80053; 81001; 83880; 84484; 84703; 85025; 93005; 96360; 99284; J7040

== ENCOUNTER 2017-04-20 00:23 | Emergency (ER) | payer MEDICAID, OTHER ==
[2017-04-20 00:23] VITALS: BMI 22.3
[2017-04-20 00:31] VITALS: O2SAT 100
--- NOTE | 2017-04-20 01:00 | C.PDOC ---
History Of Present Illness 36yo female, with LMP in December, presents to the ED complaining of palpitations which began at rest and subsided within a couple seconds. She denies any fever, chest pain, nausea or vomiting. She offers no other medical complaints. Time Seen by Provider: 04/20/17 00:59 Chief Complaint (Nursing): Palpitations History Per: Patient History/Exam Limitations: no limitations Onset/Duration Of Symptoms: Mins Current Symptoms Are (Timing): Gone Associated Symptoms: denies: Chest Pain Exacerbating Factor(s): Pos: None Recent travel outside of the [place]: No Past Medical History Vital Signs: Last Vital Signs Temp 98.3 F 04/20/17 00:28 Pulse 83 04/20/17 00:28 Resp 18 04/20/17 00:28 BP 103/64 04/20/17 00:28 Pulse Ox 100 04/20/17 01:14 - Medical History PMH: Anemia, Hyperthyroidism, Hypothyroidism Surgical History: No Surg Hx Family History: States: Unknown Family Hx, Diabetes, Hypertension - Social History Hx Tobacco Use: No Hx Alcohol Use: No Hx Substance Use: No - Immunization History Hx Tetanus Toxoid Vaccination: Yes Hx Influenza Vaccination: No Hx Pneumococcal Vaccination: No Review Of Systems Constitutional: Negative for: Fever Cardiovascular: Positive for: Palpitations (now resolved). Negative for: Chest Pain Respiratory: Negative for: Shortness of Breath Gastrointestinal: Negative for: Nausea, Vomiting Genitourinary: Negative for: Dysuria Skin: Negative for: Rash Neurological: Negative for: Weakness Psych: Negative for: Anxiety Physical Exam - Physical Exam Appears: Non-toxic, No Acute Distress Skin: Warm Head: Normacephalic Eye(s): bilateral: Normal Inspection Oral Mucosa: Moist Neck: Supple Chest: Symmetrical Cardiovascular: Rhythm Regular Respiratory: No Decreased Breath Sounds, No Accessory Muscle Use Gastrointestinal/Abdominal: Bowel Sounds, Soft, No Tenderness Back: No CVA Tenderness Extremity: No Deformity, No Swelling Extremity: Bilateral: Atraumatic, Normal Color And Temperature Pulses: Left Dorsalis Pedis: Normal, Right Dorsalis Pedis: Normal Neurological/Psych: Oriented x3, Normal Speech, Normal Cognition Gait: Steady ED Course And Treatment - Laboratory Results Result Diagrams: 04/20/17 01:18 04/20/17 01:18 ECG: Interpreted By Me, Viewed By Me ECG Rhythm: Sinus Rhythm (66), Nonspecific Changes O2 Sat by Pulse Oximetry: 100 (RA) Pulse Ox Interpretation: Normal Progress Note: Labs, IV fluids ordered Reevaluation Time: 02:49 Reassessment Condition: Improved Disposition Counseled Patient/Family Regarding: Studies Performed, Diagnosis, Need For Followup - Disposition Referrals: Jelly Goldman APN [Advanced Practice Nurse] - Disposition: HOME/ ROUTINE Disposition Time: 01:00 Condition: FAIR Instructions: Palpitations (ED), Hyperthyroidism (ED) Forms: [employer] (French) - Clinical Impression Clinical Impression: Palpitations, Hyperthyroidism - Scribe Statement The provider has reviewed the documentation as recorded by the Melvina Colunga Provider Attestation: All medical record entries made by the Melvina were at my direction and personally dictated by me. I have reviewed the chart and agree that the record accurately reflects my personal performance of the history, physical exam, medical decision making, and the department course for this patient. I have also personally directed, reviewed, and agree with the discharge instructions and disposition.
[2017-04-20] MEDS ORDERED: Sodium Chloride 0.9% 1,000 ML IV ONE (01:06)
[2017-04-20 01:22] LABS: BASO % 0.4 % (0.0-2.0); EOS # 0.2 K/uL (0.0-0.7); EOS % 2.2 % (0.0-4.0); HEMATOCRIT 36.4 % (34.0-47.0); LYMPH # 2.2 K/uL (1.0-4.3); LYMPH % 26.1 % (20.0-40.0); MEAN CELL VOLUME 92.7 fL (81.0-99.0); MEAN CORPUSCULAR HEMOGLOBIN 32.6 pg (27.0-31.0); MEAN CORPUSCULAR HGB CONC 35.2 g/dL (33.0-37.0); MEAN PLATELET VOLUME 9.7 fL (7.2-11.7); MONO # 0.5 K/uL (0.0-0.8); MONO % 5.7 % (0.0-10.0); RED CELL DISTRIBUTION WIDTH 13.2 % (11.5-14.5); WHITE BLOOD COUNT 8.2 K/uL (4.8-10.8)
[2017-04-20 01:26] LABS: URINE BILIRUBIN NEGATIVE (NEGATIVE); URINE BLOOD NEGATIVE (NEGATIVE); URINE COLOR Straw (YELLOW); URINE GLUCOSE (UA) NORMAL (Normal); URINE KETONE NEGATIVE (NEGATIVE); URINE LEUKOCYTE ESTERASE NEG Leu/uL (Negative); URINE PROTEIN NEGATIVE (NEGATIVE); URINE UROBILINOGEN NORMAL mg/dL (0.2-1.0); WBC URINE 1 /hpf (0-5)
[2017-04-20 01:35] LABS: ALB/GLOB RATIO 1.2 (1.0-2.1); ALKALINE PHOSPHATASE 38 U/L (38-126); ALT/SGPT 17 U/L (9-52); AST/SGOT 13 U/L (14-36); BILIRUBIN,TOTAL 0.2 mg/dL (0.2-1.3); BLOOD UREA NITROGEN 9 mg/dL (7-17); CALCIUM 8.5 mg/dl (8.6-10.4); CARBON DIOXIDE 21 mmol/L (22-30); CHLORIDE 103 mmol/L (98-107); GFR AFRICAN-AMERICAN > 60; GLUCOSE,RANDOM 86 mg/dL (65-105); POTASSIUM 3.8 mmol/L (3.6-5.2); SODIUM 137 mmol/L (132-148); TOTAL PROTEIN 6.6 g/dL (6.3-8.3)
[2017-04-20 02:06] LABS: THYROID STIMULATING HORMONE < 0.02 mIU/L (0.46-4.68)
[2017-04-20 03:02] VITALS: BP 108/67; PULSE 63; RESP 19; TEMP 98
--- NOTE | 2017-04-23 22:50 | CARD ---
APPROVED REPORT EKG Measurement Heart [id number] [place] 148P45 [id number] <Conclusion> Normal sinus rhythm with sinus arrhythmia Normal ECG
== END 2017-04-20 03:02 | disposition home or self-care (01) ==
LOC: C.ER 00:23
DX: R00.2 Palpitations (principal); E05.90 Thyrotoxicosis, unspecified without thyrotoxic crisis or storm; D64.9 Anemia, unspecified
CPT/HCPCS: 80053; 81001; 84443; 84702; 84703; 85025; 96360; 99284; J7040

== ENCOUNTER 2017-05-21 10:12 | Emergency (ER) | payer MEDICAID, OTHER ==
[2017-05-21 10:13] VITALS: BMI 22.3
[2017-05-21 11:24] LABS: BASO % 0.3 % (0.0-2.0); EOS # 0.1 K/uL (0.0-0.7); EOS % 1.1 % (0.0-4.0); HEMATOCRIT 35.4 % (34.0-47.0); LYMPH # 1.3 K/uL (1.0-4.3); MEAN CELL VOLUME 93.5 fL (81.0-99.0); MEAN CORPUSCULAR HEMOGLOBIN 32.4 pg (27.0-31.0); MEAN CORPUSCULAR HGB CONC 34.6 g/dL (33.0-37.0); MEAN PLATELET VOLUME 9.1 fL (7.2-11.7); MONO # 0.4 K/uL (0.0-0.8); MONO % 5.3 % (0.0-10.0); RED CELL DISTRIBUTION WIDTH 12.7 % (11.5-14.5); WHITE BLOOD COUNT 8.3 K/uL (4.8-10.8)
[2017-05-21 11:31] LABS: CHLORIDE 101 mmol/L (98-107)
[2017-05-21 11:32] LABS: POTASSIUM 4.5 mmol/L (3.6-5.2); SODIUM 131 mmol/L (132-148)
[2017-05-21 11:34] LABS: ALKALINE PHOSPHATASE 46 U/L (38-126); ALT/SGPT 26 U/L (9-52); AST/SGOT 23 U/L (14-36); BILIRUBIN,TOTAL 0.5 mg/dL (0.2-1.3); BLOOD UREA NITROGEN 8 mg/dL (7-17); CALCIUM 8.8 mg/dl (8.6-10.4); CARBON DIOXIDE 22 mmol/L (22-30); GFR AFRICAN-AMERICAN > 60; GLUCOSE,RANDOM 82 mg/dL (65-105); RBC URINE < 1 /hpf (0-3); TOTAL PROTEIN 7.3 g/dL (6.3-8.3); URINE BACTERIA RARE (<OCC); URINE BILIRUBIN NEGATIVE (NEGATIVE); URINE BLOOD NEGATIVE (NEGATIVE); URINE COLOR Straw (YELLOW); URINE GLUCOSE (UA) NORMAL (Normal); URINE KETONE NEGATIVE (NEGATIVE); URINE LEUKOCYTE ESTERASE NEG Leu/uL (Negative); URINE PROTEIN NEGATIVE (NEGATIVE); URINE UROBILINOGEN NORMAL mg/dL (0.2-1.0)
--- NOTE | 2017-05-21 12:18 | C.PDOC ---
History Of Present Illness 36 year old female presents to the ED with complaints of intermittent lower abdominal cramping and low back pain that radiates to bilateral lower extremities since 2 am today. Patient reports she is A1. Old records were reviewed and patient was last seen 05/05/2017 for complaints of back pain and palpitations. Ultrasound performed at visit showed patient was 13 weeks and she was discharged home. She denies vaginal bleeding, vomiting, diarrhea, or urinary symptoms. Time Seen by Provider: 05/21/17 10:24 Chief Complaint (Nursing): Abdominal Pain History Per: Patient History/Exam Limitations: no limitations Onset/Duration Of Symptoms: Hrs Current Symptoms Are (Timing): Still Present Location Of Pain/Discomfort: Suprapubic Radiation Of Pain To:: Leg (bilateral legs ) Quality Of Discomfort: Cramping Associated Symptoms: Back Pain. denies: Fever, Chills, Nausea, Vomiting, Diarrhea, Urinary Symptoms Exacerbating Factors: None Alleviating Factors: None Recent travel outside of the [place]: No Additional History Per: Prior Records Abnormal Vaginal Bleeding: No : 5 Para: 3 Miscarriage: 1 Past Medical History Reviewed: Historical Data, Nursing Documentation, Vital Signs Vital Signs: Last Vital Signs Temp 98.6 F 05/21/17 13:47 Pulse 79 05/21/17 13:47 Resp 16 05/21/17 13:47 BP 109/78 05/21/17 13:47 Pulse Ox 99 05/21/17 13:47 - Medical History PMH: Anemia, Cardia Arrhythmia (tachycardia), Hyperthyroidism, Hypothyroidism Family History: States: Unknown Family Hx, Diabetes, Hypertension - Social History Hx Tobacco Use: No Hx Alcohol Use: No Hx Substance Use: No - Immunization History Hx Tetanus Toxoid Vaccination: Yes Hx Influenza Vaccination: No Hx Pneumococcal Vaccination: No Review Of Systems Except As Marked, All Systems Reviewed And Found Negative. Constitutional: Negative for: Fever, Chills Cardiovascular: Negative for: Chest Pain Respiratory: Negative for: Shortness of Breath Gastrointestinal: Positive for: Abdominal Pain. Negative for: Nausea, Vomiting , Diarrhea Genitourinary: Negative for: Dysuria, Hematuria, Vaginal Bleeding Musculoskeletal: Positive for: Back Pain Neurological: Negative for: Weakness, Numbness Physical Exam - Physical Exam Appears: Non-toxic, No Acute Distress Skin: Warm, Dry Head: Atraumatic, Normacephalic Eye(s): bilateral: Normal Inspection, PERRL, EOMI Oral Mucosa: Moist Neck: Supple Chest: Symmetrical, No Deformity Cardiovascular: Rhythm Regular, No Murmur Respiratory: No Rales, No Rhonchi, No Wheezing, Other (clear to auscultation bilaterally ) Gastrointestinal/Abdominal: Soft, No Tenderness, No Guarding, No Rebound, Other (Abdomen is gravid ) Extremity: Normal ROM, No Tenderness Neurological/Psych: Oriented x3 ED Course And Treatment - Laboratory Results Result Diagrams: 05/21/17 11:20 05/21/17 11:20 Urine POC: Negative O2 Sat by Pulse Oximetry: 100 (RA) Pulse Ox Interpretation: Normal Progress Note: Ultrasound and labs were ordered. Patient was given Tylenol. On re-exam, the patient reports improvement of symptoms. Abdomen is soft, non- tender and patient is tolerating PO well. Lungs are CTA, heart is RRR. Ambulatory in the ED with steady gait. Follow up with the medical doctor within 1-2 days. Return if worsened. Disposition Counseled Patient/Family Regarding: Studies Performed, Diagnosis - Disposition Referrals: [facility] [Outside] Disposition: HOME/ ROUTINE Disposition Time: 13:34 Condition: GOOD Additional Instructions: Follow up with the medical doctor within 1-2 days. Return if worsened. Instructions: (ED) Forms: [employer] (Icelandic) Print Language: AMHARIC - Clinical Impression Clinical Impression: Abdominal pain, - PA / CHORE TENDER / Resident Statement MD/DO has reviewed & agrees with the documentation as recorded. - Scribe Statement The provider has reviewed the documentation as recorded by the Scribe Jessica Jones All medical record entries made by the Melvina were at my direction and personally dictated by me. I have reviewed the chart and agree that the record accurately reflects my personal performance of the history, physical exam, medical decision making, and the department course for this patient. I have also personally directed, reviewed, and agree with the discharge instructions and disposition.
--- NOTE | 2017-05-21 13:09 | US ---
PROCEDURE: OB Pelvic Ultrasound HISTORY: , lower abd pain, back pain ; last menstrual period is reported 12/16/2016 suggesting estimated gestational age of 22 weeks 2 days. COMPARISON: None available. FINDINGS: UTERUS: A single viable intrauterine gestation is identified in cephalic lie within upper mid fundal posterior placenta appreciated an average ultrasonic age measuring 16 weeks 0 days based on biometry be low. cardiac activity recorded 144 beats per minute. The internal cervical os appears closed. No placental abruption or previa. The following mean parameters were obtained: BPD 3.2 cm correspond to 16 weeks 1 day. HC 12.0 cm corresponds to 16 weeks 0 days. AC 9.6 cm corresponds is 15 weeks 5 days. FL 2.1 cm corresponds to 16 weeks 2 days. HC/ AC ratio is 1.24 which is within the normal range. Date of delivery (Ultrasound estimated) : 11/05/2017. A limited anatomical survey was performed revealing unremarkable appearing bilateral kidneys, urinary bladder and abdominal umbilical cord insertion. Four-chamber heart view is limited in and limited positioning of the fetus obscures imaging of the spine. No gross hydrocephalus identified. CERVIX: Long and closed. No cervical abnormality seen. RIGHT OVARY: There is a large simple cystic structure identified in the right adnexal compartment measuring 12.1 x 10.1 x 10.7 cm presumably representing a large right ovarian simple cyst. Other etiologies are possible including a peritoneal cyst. LEFT OVARY: Measures 3.6 x 2.6 x 3.5 cm. No solid mass. Normal flow. FREE FLUID: None. OTHER FINDINGS: None. IMPRESSION: A single viable intrauterine gestation is identified in cephalic lie with fairly correct AV 01 of 1940 4 beats per minute an average on ultrasonic age of 16 weeks 0 days which is discrepant from LMP derived dates of 22 weeks 2 days. Further clinical correlation is advised. Limited anatomic survey as described above. Further clinical correlation and consideration of repeat ultrasound advised as indicated. 12.1 cm right simple adnexal cyst identified presumably enlarging the right ovary as the right ovary is not clearly identified. Alternately, the right ovary may not be visualized and other etiologies concluding peritoneal cyst are possible.
[2017-05-21 13:53] VITALS: BP 109/78; PULSE 79; RESP 16; TEMP 98.6
[2017-05-22 22:12] VITALS: O2SAT 100
== END 2017-05-21 14:00 | disposition home or self-care (01) ==
LOC: C.ER 10:12
DX: O26.892 Other specified pregnancy related conditions, second trimester (principal); R10.9 Unspecified abdominal pain; Z3A.16 16 weeks gestation of pregnancy

== ENCOUNTER 2017-07-22 22:30 | Emergency (ER) | payer MEDICAID, OTHER ==
[2017-07-22 23:02] VITALS: BMI 28.0
[2017-07-22 23:24] LABS: RBC URINE 3 /hpf (0-3); TRANSITIONAL EPITHIAL < 1 /hpf (0-3); URINE BACTERIA RARE (<OCC); URINE BILIRUBIN NEGATIVE (NEGATIVE); URINE BLOOD NEGATIVE (NEGATIVE); URINE COLOR Yellow (YELLOW); URINE GLUCOSE (UA) NORMAL (Normal); URINE KETONE NEGATIVE (NEGATIVE); URINE LEUKOCYTE ESTERASE NEG Leu/uL (Negative); URINE PROTEIN NEGATIVE (NEGATIVE); URINE UROBILINOGEN NORMAL mg/dL (0.2-1.0); WBC URINE 1 /hpf (0-5)
== END 2017-07-23 | disposition home or self-care (01) ==
LOC: C.EROB 22:30
DX: O26.892 Other specified pregnancy related conditions, second trimester (principal); Z3A.24 24 weeks gestation of pregnancy; R10.2 Pelvic and perineal pain

== ENCOUNTER 2017-10-22 20:16 | Emergency (ER) | payer MEDICAID, OTHER ==
--- NOTE | 2017-10-22 21:31 | OBHP ---
Datetime: 10/22/2017 21:26 IP Adm Impression: No Active Labor IP Admit Plan: Discharge home Admit Comment, IP Provider: chief complaint-contractions HPI 37 y/o female at 38 wga with c/o abodminal tightening and pelvic pressure.states that she had contractions earlier in the day and they are resolved now course AMA, hyperthyroid, absent nasal bone.declined amnio PMH hyperthyroid PSH denies OBGYN HX ; [id number] Social hx denies tobacco,alochol or illicit drug use Exam see exam section A/P 37 y/o at 38 wga with c/o contractions -no active labor -patient discharged home -follow up in clinic thius week -active labor precautions given Pelvic Type - PN: Adequate Extremities - PN: Normal Abdomen - PN: Normal Back - PN: Normal Lungs - PN: Normal Heart - PN: Normal Neurologic - PN: Normal General - PN: Normal Contraction Comments Provider: every 2-3min IP Hx Assessment: The History has been Reviewed and is Current EGA AdmitDate IP: 38.0 Vital Signs Provider: Reviewed; Within Normal Limits IP Chief Complaint: Uterine contractions FHR Category Provider Fetus A: Category I Dilatation, Provider: 0 Genitourinary Exam: Normal DTRs - PN: Normal
[2017-10-23 02:01] VITALS: BP 103/55; PULSE 75
== END 2017-10-22 21:18 | disposition home or self-care (01) ==
LOC: C.EROB 20:16
DX: O47.1 False labor at or after 37 completed weeks of gestation (principal); Z3A.38 38 weeks gestation of pregnancy

== ENCOUNTER 2017-11-05 15:00 | Emergency (ER) | payer OTHER ==
--- NOTE | 2017-11-05 16:40 | OBHP ---
Datetime: 10/22/2017 21:26 FHR - Baseline A Provider: 140 Membranes, Provider: Intact Comments, ACOG Physical Exam: Pt presented to the hospital with complaints of contractions. Pt was c hecked and was found to be 09/03/-3. She in jessica every 3-4 minutes. She was re-checked after o ne hour with no cervical change. PT is in early labor. She was advised to return once the contractio ns become more frequent. Gestation - Est Wks by US: 40.0 EGA AdmitDate IP: 38.0 NICHD Variability Prov Fetus A: Moderate 6-25bpm NICHD Accel Fetus A IP Provider: 15X15 NICHD Decel Fetus A IP Provider: None Effacement, Provider: 30 Station, Provider: -3
--- NOTE | 2017-11-05 16:42 | OBDCSUM ---
Datetime: 11/05/2017 16:37 Discharged to, Provider: Home Follow up at, Provider: [facility] Disch Instr Activity: Normal activity Disch Instr Diet: Regular Discharge Instructions, Provider: Routine instructions given Discharge Diagnosis, Provider: False Labor - Undelivered Follow up in weeks, Provider: 11/06/17 Disch Referrals: None
[2017-11-05 21:11] VITALS: BP 110/63; PULSE 90; RESP 18; TEMP 97.5; O2SAT 97
== END 2017-11-05 16:40 | disposition home or self-care (01) ==
LOC: C.EROB 15:00
DX: O47.1 False labor at or after 37 completed weeks of gestation (principal); Z3A.38 38 weeks gestation of pregnancy

== ENCOUNTER 2017-11-09 01:35 | Inpatient (IN) | payer OTHER ==
[2017-11-09 02:27] VITALS: BMI 30.9
[2017-11-09] MEDS ORDERED: Penicillin G 5 Million Unit Vial IVPB STA (02:28)
--- NOTE | 2017-11-09 02:29 | OBADHP ---
Datetime: 11/09/2017 02:24 Admit Comment, IP Provider: at 40+weeks came with c/o ctxs atarted few days ago, got worse, no vb, lof=fm obhx 3 x pmh synthroid, hypoth med pnv all kda psh de soch de ve losed a/p at 40+weeks in early labor admit to l_d nppo/ivf labs cont jayla and efm cytotec anticipae Pelvic Type - PN: Adequate Extremities - PN: Normal Abdomen - PN: Normal Back - PN: Normal Breast - PN: Normal Lungs - PN: Normal Heart - PN: Normal Thyroid - PN: Normal Neurologic - PN: Normal HEENT - PN: Normal General - PN: Normal FHR - Baseline A Provider: 130 Contraction Comments Provider: q1-4 IP Hx Assessment: The History has been Reviewed and is Current Vital Signs Provider: Reviewed; Within Normal Limits IP Chief Complaint: Uterine contractions NICHD Variability Prov Fetus A: Moderate 6-25bpm NICHD Accel Fetus A IP Provider: 15X15 FHR Category Provider Fetus A: Category I Dilatation, Provider: 0 Effacement, Provider: 30 Station, Provider: -3 Genitourinary Exam: Normal DTRs - PN: Normal EGA AdmitDate IP: 40.4 IP Adm Impression: Postterm, intrauterine IP Admit Plan: Admit to unit; Initiate labor protocol Datetime: 10/22/2017 21:26 Membranes, Provider: Intact Comments, ACOG Physical Exam: Pt presented to the hospital with complaints of contractions. Pt was c hecked and was found to be 09/03/-3. She in jessica every 3-4 minutes. She was re-checked after o ne hour with no cervical change. PT is in early labor. She was advised to return once the contractio ns become more frequent. Gestation - Est Wks by US: 40.0 NICHD Decel Fetus A IP Provider: None Datetime: 07/22/2017 23:09 IP Chief Complaint Other: Low back pain Presentation-Admit: Vertex
[2017-11-09] MEDS ORDERED: Lactated Ringer's 1,000 ML IV SCH (02:30)
[2017-11-09] MEDS ORDERED: Nalbuphine 20 mg/ml Inj (1 ml) IVP PRN (02:45)
[2017-11-09 03:51] LABS: BASO % 0.1 % (0.0-2.0); EOS # 0.1 K/uL (0.0-0.7); EOS % 1.3 % (0.0-4.0); HEMOGLOBIN 13.6 g/dL (11.0-16.0); LYMPH # 1.5 K/uL (1.0-4.3); LYMPH % 15.9 % (20.0-40.0); MEAN CELL VOLUME 98.2 fL (81.0-99.0); MEAN CORPUSCULAR HEMOGLOBIN 34.4 pg (27.0-31.0); MEAN CORPUSCULAR HGB CONC 35.1 g/dL (33.0-37.0); MEAN PLATELET VOLUME 9.4 fL (7.2-11.7); MONO # 0.6 K/uL (0.0-0.8); MONO % 6.3 % (0.0-10.0); NEUT % 76.4 % (50.0-75.0); RBC 3.95 Mil/uL (3.80-5.20); RED CELL DISTRIBUTION WIDTH 13.3 % (11.5-14.5); WHITE BLOOD COUNT 9.2 K/uL (4.8-10.8)
[2017-11-09 03:54] LABS: SQUAMOUS EPITHIAL 7 /hpf (0-5); URINE BACTERIA RARE (<OCC); URINE BILIRUBIN NEGATIVE (NEGATIVE); URINE BLOOD NEGATIVE (NEGATIVE); URINE CLARITY Hazy (Clear); URINE COLOR Yellow (YELLOW); URINE GLUCOSE (UA) NORMAL (Normal); URINE LEUKOCYTE ESTERASE NEG Leu/uL (Negative); URINE PROTEIN NEGATIVE (NEGATIVE); URINE UROBILINOGEN NORMAL mg/dL (0.2-1.0)
[2017-11-09 04:02] LABS: ALB/GLOB RATIO 1.2 (1.0-2.1); ALBUMIN 3.6 g/dL (3.5-5.0); ALT/SGPT < 6 U/L (9-52); AST/SGOT 12 U/L (14-36); BLOOD UREA NITROGEN 6 mg/dL (7-17); CALCIUM 8.2 mg/dl (8.6-10.4); GFR AFRICAN-AMERICAN > 60; GFR NON-AFRICAN AMERICAN > 60
[2017-11-09] MEDS ORDERED: Dextrose 5%/Lactated Ringer's 1,000 ML IV SCH (07:30)
--- NOTE | 2017-11-09 07:36 | OBPN ---
Datetime: 11/09/2017 07:27 IP Progress Impression: Normal progression of labor; Reactive non-stress test IP Procedures: Sterile Vag Exam IP Progress Plan: Continue present management; Anticipate Vaginal Delivery Membranes, Provider: Intact FHR - Baseline A Provider: 150 Gestation - Est Wks by US: 40w 4d Presentation-Admit: Vertex IP Progress Note Comment: Patient received in LDR#2, just voided. reports FM, "a little bit". Dentylor s LOF, VB. (+) Ctx, pain scale 5/10 Cervical exam: as above. Assessment: 37 y.o. P3013, 40w 4d S/P cytotec x 1 with good cervical response. AMA. GBS (+). Cat egory 1 tracing. D/W patient augmentation with pitocin, if needed. Also discussed pain management op tions - more receptive to epidural. Patient is clinically stable. Plan: 1) Start penicillin 2) Reassess for pitocin 3) Anticipate anesthesia consult 4) Anticipate vaginal delivery NICHD Accel Fetus A IP Provider: 10X10 FHR Category Provider Fetus A: Category I NICHD Variability Prov Fetus A: Moderate 6-25bpm Dilatation, Provider: 4 Effacement, Provider: 50 Station, Provider: -3 NICHD Decel Fetus A IP Provider: None Datetime: 11/09/2017 02:24 Contraction Comments Provider: q1-4 Vital Signs Provider: Reviewed; Within Normal Limits
[2017-11-09] MEDS ORDERED: Penicillin G 5 Million Unit Vial IVPB ONE (07:40)
[2017-11-09] MEDS ORDERED: Oxytocin 30 UNIT 30 UNITS/500 ML BAG IV PRN (07:58)
[2017-11-09] MEDS ORDERED: Oxytocin 30 UNIT 30 UNITS/500 ML BAG IV ONE (09:18)
[2017-11-09] MEDS ORDERED: Bupivacaine HCl/FentaNYL Cit 100 ML EPI ONE (11:40)
--- NOTE | 2017-11-09 15:44 | OBDS ---
DELIVERY PERSONNEL Delivery Doctor: Andree Mariscal MD Anesthesiologist: joanie MATERNAL INFORMATION Delivery Anesthesia: Epidural Medications in Delivery: pitocin 20 units Estimated Blood Loss (ml): 200 Placenta Cultured: No Maternal Complications: None RN Comments: uneventful delivery of a live baby girl. skin to skin immediately after . cord c lamped while skin to skin Provider Comments: Uncomplicated vaginal delivery of live female infant, EDU position over intact pe rineum. 's mouth bulb-sucitoned on perineum. Body delivered without incident; umbilical cord do ubly clamped and cut. Infant placed on mother's abdomen. Spontaneous delivery of placenta - grossly i ntact; 3 vessel cord. Uterine exploration performed; uterus contracted and firm. Cervix, vagina. per ineum inspected. Laceration as above; repaired. Infant and mother bonding; both in stable condition. weight 7lb 2oz; 's 9/9. EBL 200mL. LABOR SUMMARY EDC: 11/05/2017 00:00 No. Babies in Womb: 1 Attempted: No Labor Anesthesia: Epidural LABOR INFORMATION Reason for Induction: Postterm Cervical Ripening Agents: Cytotec @ (Annotations: 50 mcg PO) Oxytocin: N/A Group B Beta Strep: Positive (Annotations: 10/10/2017) Antibiotics # of Doses: 2 Antibiotics Time of Last Dose: 11:59 Steroids Given: None Reason Steroids Not Administered: Indication MEMBRANES Membranes Rupture Method: Spontaneous Amniotic Fluid Color: Clear Amniotic Fluid Amount: Moderate STAGES OF LABOR Stage 3 hrs: 0 Stage 3 min: 5 VAGINAL DELIVERY Episiotomy: None Laceration Extension: First Degree Laceration Type: Perineal Laceration Repair: Yes Laceration Repair Note: 3-0 chromic, running interlocking on skin. Hemostasis assred. Patient tolera eduar procedure well. Initial Vag Sponge Count: 10 Final Vag Sponge Count: 10 Initial Vag Sharps Count: 0 Final Vag Sharps Count: 1 Sponge Count Correct: Yes Sharps Count Correct: Yes Count Comment: Correct BABY A INFORMATION Delivery Date/Time: 11/09/2017 15:18 Method of Delivery: Vaginal Born in Route : No : N/A Forceps: N/A Vacuum Extraction: N/A SHOULDER DYSTOCIA BABY A Delivery Date/Time: 11/09/2017 15:18 PRESENTATION/POSITION BABY A Presentation: Cephalic Cephalic Presentation: Vertex Vertex Position: Left Occipital Anterior Breech Presentation: N/A PLACENTA INFORMATION BABY A Placenta Delivery Time : 11/09/2017 15:23 Placenta Method of Delivery: Spontaneous Placenta Status: Delivered SCORES BABY A Heart Rate 1 min: >100 bpm Resp Effort 1 min: Good Cry Reflex Irritability 1 min: Cough or Sneeze or Pulls Away Muscle Tone 1 min: Active Motion Color 1 min: Body [place], Extremities Blue SCORE 1 MIN: 9 Heart Rate 5 min: >100 bpm Resp Effort 5 min: Good Cry Reflex Irritability 5 min: Cough or Sneeze or Pulls Away Muscle Tone 5 min: Active Motion Color 5 min: Body [place], Extremities Blue SCORE 5 MIN: 9 INFANT INFORMATION BABY A Gestational Age at Delivery: 40.4 Gestational Status: Term Outcome : Liveborn Infant Condition : Stable Infant Sex: Female IDENTIFICATION/MEDS BABY A ID Band Number: [id number] Sensor Number: [id number] WEIGHT/LENGTH BABY A Infant Birthweight (gms): 3235 Infant Weight (lb): 7 Infant Weight (oz): 2 Infant Length Inches: 19.75 Length cms: 50.2 CORD INFORMATION BABY A No. Cord Vessels: 3 Nuchal Cord : N/A Nuchal Cord Other: 0 True Knot: 0 Cord Blood Taken: Yes Suction: Mouth ASSESSMENT BABY A Infant Complications: None Physical Findings at Delivery: Within Normal Limits Respirations: Appears Normal Infant Care By: alex salas Transferred To: Remains with Mother
[2017-11-09] MEDS ORDERED: Oxycodone/Acetaminophen 5/325 mg Tab PO PRN (15:51)
[2017-11-09] MEDS: methIMAzole 5 MG TAB PO SCH (15:58)
[2017-11-10 08:03] VITALS: RESP 18
[2017-11-10 08:41] LABS: BASO # 0.1 K/uL (0.0-0.2); BASO % 0.6 % (0.0-2.0); EOS # 0.1 K/uL (0.0-0.7); EOS % 1.2 % (0.0-4.0); HEMOGLOBIN 12.1 g/dL (11.0-16.0); LYMPH # 1.6 K/uL (1.0-4.3); MEAN CELL VOLUME 97.8 fL (81.0-99.0); MEAN CORPUSCULAR HEMOGLOBIN 34.2 pg (27.0-31.0); MEAN CORPUSCULAR HGB CONC 34.9 g/dL (33.0-37.0); MONO # 0.8 K/uL (0.0-0.8); MONO % 6.6 % (0.0-10.0); NEUT # 9.3 K/uL (1.8-7.0); NEUT % 78.6 % (50.0-75.0); RBC 3.53 Mil/uL (3.80-5.20); RED CELL DISTRIBUTION WIDTH 13.4 % (11.5-14.5); WHITE BLOOD COUNT 11.9 K/uL (4.8-10.8)
[2017-11-10] MEDS: Multiple Vitamins Tab PO SCH (09:12)
[2017-11-10] MEDS: methIMAzole 5 MG TAB PO SCH (09:13)
[2017-11-10] MEDS: Benzocaine/Menthol 20%-0.5% Topical Spray (60 ml) TOP SCH (09:15)
--- NOTE | 2017-11-10 13:15 | OBPPN ---
Datetime: 11/10/2017 13:07 PP Pain Prov: Within normal limits PP Nausea Prov: Denies PP Flatus Prov: No PP BM Prov: No PP Breasts Prov: Normal PP Heart Prov: Normal PP Lungs Prov: Normal PP Abdomen/Uterus Prov: Normal PP Lochia Prov: Normal PP Vulva/Perineum Prov: Normal PP CVA Tenderness Prov: Normal PP Extremities Prov: Normal PP C/S Incision Prov: Not Applicable PP Progress Prov: Normal PP Comments Phys Exam Prov: Abdomen: (+) BS. Obese. Soft, non distended. Fundus firm, mobile, non te nder, at umbilicus. Mild lochia rubra. Extremities: no calf tenderness, cyanosis or edema All other systems reviewed and are negative PP Impression Prov: Normal progression PP Plan Prov: Continue present management PP Progress Note Prov: Patient received sitting up in bed, room 452. exclusively. Amb ulating and voiding without difficulty. Denies headaches, lightheadedness, nausea or vomiting; report s mild abdominal cramps - relieved with Motrin. P.E.: as above. Mildly obese, in NAD. Awake, alert, oriented to time, person and place. Pleasant and cooperative. - PPD#1 H/H 12.1/34.5. Rh (+) Assessment: PPD#1, 37 y.o. P4014, S/P . AMA. Hyperthyroid on methimazole - asymptomatic and sta ble. Afebrile; vital signs stable. Patient is clinically stable. Plan: 1) Continue present management 2) Anticipate discharge home 11/11/17. Vital Signs Provider PP: Reviewed; Within Normal Limits
[2017-11-11] MEDS: Benzocaine/Menthol 20%-0.5% Topical Spray (60 ml) TOP SCH (00:12)
--- NOTE | 2017-11-11 07:15 | OBPPN ---
Datetime: 11/11/2017 07:11 PP Pain Prov: Within normal limits PP Nausea Prov: Denies PP Flatus Prov: Yes PP Abdomen/Uterus Prov: Normal PP Lochia Prov: Normal PP Extremities Prov: Normal PP Comments Phys Exam Prov: fudus below umblicus ext no edema,no calf ten PP Impression Prov: Normal progression PP Plan Prov: Discharge PP Progress Note Prov: pt was seen at bed side,opain under control,no n/v, tolerating deit,voiding,m in lochisa, flatus+ ppd#2 s/p dc home no sex motrin orn f/u in 6week Vital Signs Provider PP: Reviewed; Within Normal Limits
--- NOTE | 2017-11-11 07:15 | OBDCSUM ---
Datetime: 11/11/2017 07:13 Discharged to, Provider: Home Follow up at, Provider: 6we Discharge Diagnosis, Provider: Term Delivered Follow up in weeks, Provider: clinic Disch Activity Restrictions: No sexual activity; Nothing in vagina - [place], tampons, douche Discharge Comment, Provider: [facility], [place] no sex motrin orn f/u in 6week
[2017-11-11] MEDS: methIMAzole 5 MG TAB PO SCH (09:24)
[2017-11-11] MEDS: Multiple Vitamins Tab PO SCH (09:24)
[2017-11-11 16:50] VITALS: BP 106/59; PULSE 80; TEMP 97; O2SAT 99
== END 2017-11-11 12:40 | disposition home or self-care (01) | DRG 373 ==
LOC: C.EROB 01:35 → C.4D 02:25 → C.4M 18:53
PROVIDERS: ADMIT Obstetrics & Gynecology; ATTEND Obstetrics & Gynecology
PROC: 10E0XZZ Delivery of Products of Conception, External Approach (ICD-10-PCS; principal; 2017-11-09)
PROC: 0HQ9XZZ Repair Perineum Skin, External Approach (ICD-10-PCS; 2017-11-09)
DX: O69.81X0 Labor and delivery complicated by cord around neck, without compression, not applicable or unspecified (principal); E05.90 Thyrotoxicosis, unspecified without thyrotoxic crisis or storm; O99.284 Endocrine, nutritional and metabolic diseases complicating childbirth; O70.0 First degree perineal laceration during delivery; E66.9 Obesity, unspecified; O99.214 Obesity complicating childbirth; O99.824 Streptococcus B carrier state complicating childbirth; Z3A.40 40 weeks gestation of pregnancy; Z37.0 Single live birth

== ENCOUNTER 2017-11-15 11:59 | Emergency (ER) | payer OTHER ==
[2017-11-15 12:15] VITALS: BMI 30.7
[2017-11-15 12:38] LABS: BASO # 0.1 K/uL (0.0-0.2); BASO % 0.7 % (0.0-2.0); EOS # 0.2 K/uL (0.0-0.7); EOS % 2.2 % (0.0-4.0); LYMPH # 1.5 K/uL (1.0-4.3); LYMPH % 17.2 % (20.0-40.0); MEAN CORPUSCULAR HEMOGLOBIN 34.1 pg (27.0-31.0); MEAN CORPUSCULAR HGB CONC 34.8 g/dL (33.0-37.0); MEAN PLATELET VOLUME 9.1 fL (7.2-11.7); MONO # 0.4 K/uL (0.0-0.8); MONO % 4.8 % (0.0-10.0); NEUT # 6.4 K/uL (1.8-7.0); NEUT % 75.1 % (50.0-75.0); NRBC % 0.1 % (0.0-2.0); RBC 4.17 Mil/uL (3.80-5.20); RED CELL DISTRIBUTION WIDTH 13.5 % (11.5-14.5); WHITE BLOOD COUNT 8.5 K/uL (4.8-10.8)
[2017-11-15 12:41] LABS: HEMOGLOBIN 14.2 g/dL (11.0-16.0)
[2017-11-15 12:53] LABS: ALB/GLOB RATIO 1.1 (1.0-2.1); ALBUMIN 3.9 g/dL (3.5-5.0); ALT/SGPT 17 U/L (9-52); AST/SGOT 25 U/L (14-36); BLOOD UREA NITROGEN 11 mg/dL (7-17); CALCIUM 9.1 mg/dl (8.6-10.4); GFR AFRICAN-AMERICAN > 60; GFR NON-AFRICAN AMERICAN > 60; LIPASE 73 U/L (23-300)
[2017-11-15 13:03] LABS: SQUAMOUS EPITHIAL 20 /hpf (0-5); URINE BACTERIA RARE (<OCC); URINE BILIRUBIN NEGATIVE (NEGATIVE); URINE BLOOD 3+ (NEGATIVE); URINE CLARITY Hazy (Clear); URINE GLUCOSE (UA) NORMAL (Normal); URINE LEUKOCYTE ESTERASE 2+ Leu/uL (Negative); URINE PROTEIN 1+ mg/dL (NEGATIVE); URINE UROBILINOGEN NORMAL mg/dL (0.2-1.0)
[2017-11-15] MEDS ORDERED: Sodium Chloride 0.9% 1,000 ML IV ONE (13:03)
--- NOTE | 2017-11-15 13:03 | C.PDOC ---
History Of Present Illness 37 Y/O FEMALE PRESENTS TO ED WITH COMPLAINTS OF RIGHT PELVIC AND LOWER QUADRANT PAIN X 1 HR. PATIENT IS S/P ON 11/08. PATIENT STATES SHE HAS RIGHT OVARIAN CYST. PATIENT REPORTS SHE HAS BEEN DOING WELL UNTIL TODAY. NO FEVER, VB OR UTI SX. EXAM MOD DIST NONTOXIC ABD +RLQ/PELVIC TEND SOFT NO R/G REMAINDER NEG Time Seen by Provider: 11/15/17 12:43 Chief Complaint (Nursing): Abdominal Pain History Per: Patient History/Exam Limitations: no limitations Onset/Duration Of Symptoms: Hrs Current Symptoms Are (Timing): Still Present Past Medical History Reviewed: Historical Data, Nursing Documentation, Vital Signs Vital Signs: Last Vital Signs Temp 98.9 F 11/15/17 14:58 Pulse 57 L 11/15/17 14:58 Resp 18 11/15/17 14:58 BP 124/74 11/15/17 14:58 Pulse Ox 97 11/15/17 14:58 - Medical History PMH: Anemia, Cardia Arrhythmia (tachycardia), Hyperthyroidism, Hypothyroidism Surgical History: No Surg Hx - [facility] Procedures DELIVERY OF PRODUCTS OF CONCEPTION, EXTERNAL APPROACH (11/09/17) REPAIR PERINEUM SKIN, EXTERNAL APPROACH (11/09/17) Family History: States: Diabetes, Hypertension - Social History Hx Tobacco Use: No Hx Alcohol Use: No Hx Substance Use: No - Immunization History Hx Tetanus Toxoid Vaccination: Yes Hx Influenza Vaccination: Yes Hx Pneumococcal Vaccination: Yes Review Of Systems Constitutional: Negative for: Fever, Chills Gastrointestinal: Positive for: Abdominal Pain. Negative for: Nausea, Vomiting Genitourinary: Positive for: Pelvic Pain. Negative for: Dysuria, Hematuria Skin: Negative for: Rash Physical Exam - Physical Exam Appears: Non-toxic, Other (Moderate distress) Skin: Warm, Dry, No Rash Head: Atraumatic, Normacephalic Oral Mucosa: Moist Neck: Normal ROM, Supple Cardiovascular: Rhythm Regular Respiratory: Normal Breath Sounds, No Rales, No Rhonchi, No Wheezing Gastrointestinal/Abdominal: Soft, Tenderness (RLQ and Pelvic), No Guarding, No Rebound Back: No CVA Tenderness Extremity: Normal ROM, Capillary Refill (<2 seconds) Neurological/Psych: Oriented x3, Normal Speech, Normal Cognition ED Course And Treatment - Laboratory Results Result Diagrams: 11/15/17 12:32 11/15/17 12:32 O2 Sat by Pulse Oximetry: 99 (RA) Pulse Ox Interpretation: Normal Progress - Re-Evaluation Re-evaluation Note: 11/15/17 13:03 PT ADVISED CAN NOT BREAST FEED DUE TO PAIN MED TO BE GIVEN. 11/15/17 15:47 D/W DR VARGAS [employer] MARKER AWARE OF ER FINDINGS, ADVISES OUTPT FU. PT APPEARS COMFORTABLE . MOTRIN ,TYL, AVOID FU OBGYN - Data Reviewed Data Reviewed: Lab, Diagnostic imaging, EKG, Old records Disposition Counseled Patient/Family Regarding: Studies Performed, Diagnosis, Need For Followup, Rx Given - Disposition Referrals: [facility] Director Service [Outside] [facility] [Outside] YOUR,OBGYN [Other] Disposition: HOME/ ROUTINE Disposition Time: 15:48 Condition: IMPROVED Prescriptions: Acetaminophen [Tylenol Extra Strength] 2 tab PO Q6 #30 tablet Ibuprofen [Motrin] 600 mg PO Q6 #30 tab Instructions: Ovarian Cyst (DC) Forms: [facility] (Latvian) Print Language: KAZAKH - Clinical Impression Clinical Impression: Ovarian cyst, Pelvic pain - Scribe Statement The provider has reviewed the documentation as recorded by the Scribe Darrell Acosta All medical record entries made by the Scribe were at my direction and personally dictated by me. I have reviewed the chart and agree that the record accurately reflects my personal performance of the history, physical exam, medical decision making, and the department course for this patient. I have also personally directed, reviewed, and agree with the discharge instructions and disposition.
[2017-11-15 13:05] LABS: URINE COLOR AMBER (YELLOW)
[2017-11-15] MEDS ORDERED: Sodium Chloride 0.9% 1,000 ML ONE (13:15)
[2017-11-15] MEDS ORDERED: Morphine 4 MG/ML VIAL ONE (13:16)
--- NOTE | 2017-11-15 14:56 | US ---
HISTORY: R PELVIC PAIN RO TORSION, RUPTURED CYST, RPOC COMPARISON: None available. TECHNIQUE: Grayscale, color Doppler and spectral evaluation the pelvis performed transabdominally and transvaginally FINDINGS: UTERUS: Enlarged, measuring 17.2 x 9.2 x 14.0 cm. Inhomogeneous. No fibroid or other mass lesion seen. ENDOMETRIUM: Measures 15 mm in diameter. CERVIX: No cervical abnormality identified. RIGHT OVARY: Measures 16.2 x 10.6 x 15.5 cm. Large cyst measuring 14.7 x 9.9 x 14.2 cm. Normal flow. LEFT OVARY: Not seen. FREE FLUID: Small amount of free fluid is noted in the right adnexa. OTHER FINDINGS: None. IMPRESSION: Large right ovarian cyst measuring 14.7 cm. This may be larger in comparison to the prior study, where it measured 12.1 cm ; however, sonographic size measurement is difficult with structures this large. Arterial and venous Doppler flow noted to right ovary.
[2017-11-15 14:59] VITALS: BP 124/74; TEMP 98.9
[2017-11-15 16:14] VITALS: PULSE 66; RESP 17; O2SAT 98
== END 2017-11-15 16:17 | disposition home or self-care (01) ==
LOC: C.ER 11:59
DX: N83.209 Unspecified ovarian cyst, unspecified side (principal); R10.2 Pelvic and perineal pain
CPT/HCPCS: 76830; 76856; 80053; 81001; 83690; 85025; 96361; 96374; 96375; 99285; J2270; J2405; J7040

== ENCOUNTER 2017-11-17 23:15 | Emergency (ER) | payer OTHER ==
[2017-11-17 23:15] VITALS: BMI 30.7
--- NOTE | 2017-11-17 23:41 | C.PDOC ---
History Of Present Illness 37 year old female presents to the ED for evaluation of palpitations. Patient reports that after she got diagnosed with thyroid problem a year ago she started having palpitations. Patient recently gave non November 09. Patient denies CP, SOB, back pain, vomit, diarrhea, weakness, numbness, leg swelling. Chief Complaint (Nursing): Palpitations History Per: Patient History/Exam Limitations: no limitations Onset/Duration Of Symptoms: Days Current Symptoms Are (Timing): Still Present Quality: Other Alleviating Factors: None Recent travel outside of the [place]: No Additional History Per: Patient Past Medical History Reviewed: Historical Data, Nursing Documentation, Vital Signs Vital Signs: Last Vital Signs Temp 98.5 F 11/18/17 02:06 Pulse 47 L 11/18/17 02:06 Resp 18 11/18/17 02:41 BP 134/84 11/18/17 02:06 Pulse Ox 99 11/18/17 02:06 - Medical History PMH: Anemia, Cardia Arrhythmia (tachycardia), Hyperthyroidism, Hypothyroidism Denies: Depression, Diabetes, HTN Surgical History: No Surg Hx - [facility] Procedures DELIVERY OF PRODUCTS OF CONCEPTION, EXTERNAL APPROACH (11/09/17) REPAIR PERINEUM SKIN, EXTERNAL APPROACH (11/09/17) Family History: States: Unknown Family Hx, Diabetes, Hypertension - Social History Hx Tobacco Use: No Hx Alcohol Use: No Hx Substance Use: No - Immunization History Hx Tetanus Toxoid Vaccination: Yes Hx Influenza Vaccination: Yes Hx Pneumococcal Vaccination: Yes Review Of Systems Constitutional: Negative for: Fever, Chills Cardiovascular: Positive for: Palpitations. Negative for: Chest Pain Respiratory: Negative for: Shortness of Breath Gastrointestinal: Negative for: Nausea, Vomiting Skin: Negative for: Rash Neurological: Negative for: Headache, Dizziness Physical Exam - Physical Exam Appears: Non-toxic, No Acute Distress Skin: Normal Color, Warm, Dry Head: Atraumatic, Normacephalic Eye(s): bilateral: Normal Inspection Nose: No Discharge Oral Mucosa: Moist Neck: Normal ROM, Supple Chest: Symmetrical Cardiovascular: Rhythm Regular (slow), No Murmur Respiratory: Normal Breath Sounds, No Rales, No Rhonchi, No Wheezing Gastrointestinal/Abdominal: Soft, No Tenderness, No Guarding, No Rebound, Other (protuberant) Extremity: Normal ROM, No Tenderness, Capillary Refill (< 2 seconds), No Swelling Pulses: Left Dorsalis Pedis: Normal, Right Dorsalis Pedis: Normal Neurological/Psych: Oriented x3, Normal Motor, Normal Sensation Gait: Steady ED Course And Treatment - Laboratory Results Result Diagrams: 11/18/17 00:24 11/18/17 00:24 O2 Sat by Pulse Oximetry: 98 (ON RA) Pulse Ox Interpretation: Normal Medical Decision Making Medical Decision Making: Impression: palpitations Plan: * EKG * Labs * UA Disposition - Disposition Referrals: [facility] [Outside] Disposition: HOME/ ROUTINE Disposition Time: 05:22 Condition: FAIR Instructions: Palpitations Forms: [facility] (Japanese) Print Language: MOSOTHO - Clinical Impression Clinical Impression: Palpitations - Scribe Statement The provider has reviewed the documentation as recorded by the Scribe Rocky Ovalles All medical record entries made by the Scribe were at my direction and personally dictated by me. I have reviewed the chart and agree that the record accurately reflects my personal performance of the history, physical exam, medical decision making, and the department course for this patient. I have also personally directed, reviewed, and agree with the discharge instructions and disposition.
[2017-11-18 00:30] LABS: BASO % 0.5 % (0.0-2.0); EOS # 0.2 K/uL (0.0-0.7); EOS % 2.7 % (0.0-4.0); HEMOGLOBIN 13.5 g/dL (11.0-16.0); LYMPH # 2.2 K/uL (1.0-4.3); LYMPH % 25.7 % (20.0-40.0); MEAN CELL VOLUME 96.8 fL (81.0-99.0); MEAN CORPUSCULAR HEMOGLOBIN 34.1 pg (27.0-31.0); MEAN CORPUSCULAR HGB CONC 35.2 g/dL (33.0-37.0); MEAN PLATELET VOLUME 9.4 fL (7.2-11.7); MONO # 0.5 K/uL (0.0-0.8); MONO % 6.1 % (0.0-10.0); NEUT # 5.4 K/uL (1.8-7.0); RBC 3.96 Mil/uL (3.80-5.20); RED CELL DISTRIBUTION WIDTH 12.9 % (11.5-14.5); WHITE BLOOD COUNT 8.4 K/uL (4.8-10.8)
[2017-11-18 00:39] LABS: SQUAMOUS EPITHIAL 5 /hpf (0-5); URINE BACTERIA RARE (<OCC); URINE BILIRUBIN NEGATIVE (NEGATIVE); URINE CLARITY Hazy (Clear); URINE COLOR Straw (YELLOW); URINE GLUCOSE (UA) NORMAL (Normal); URINE LEUKOCYTE ESTERASE 2+ Leu/uL (Negative); URINE PROTEIN NEGATIVE (NEGATIVE); URINE UROBILINOGEN NORMAL mg/dL (0.2-1.0)
[2017-11-18 00:42] LABS: URINE BLOOD TRACE (NEGATIVE)
[2017-11-18 00:47] LABS: BARBITURATES, UR NEGATIVE (NEGATIVE); BENZODIAZEPINES, UR NEGATIVE (NEGATIVE); OPIATES, UR NEGATIVE (NEGATIVE); PHENCYCLIDINE, UR NEGATIVE (NEGATIVE)
[2017-11-18 01:15] LABS: BLOOD UREA NITROGEN 12 mg/dL (7-17)
[2017-11-18 01:32] LABS: ALBUMIN 3.6 g/dL (3.5-5.0); ALT/SGPT 7 U/L (9-52); AST/SGOT 27 U/L (14-36); CALCIUM 8.3 mg/dl (8.6-10.4)
[2017-11-18 01:33] LABS: GFR AFRICAN-AMERICAN > 60; GFR NON-AFRICAN AMERICAN > 60
[2017-11-18 02:07] VITALS: BP 134/84; PULSE 47; RESP 18; TEMP 98.5
[2017-11-18 05:23] VITALS: O2SAT 98
--- NOTE | 2017-11-19 02:07 | CARD ---
APPROVED REPORT EKG Measurement Heart [id number] <Conclusion> Sinus bradycardia Possible Left atrial enlargement Inferior infarct, age undetermined Cannot rule out Anterior infarct, age undetermined Abnormal ECG
== END 2017-11-18 02:41 | disposition home or self-care (01) ==
LOC: C.ER 23:15
DX: R00.2 Palpitations (principal); D64.9 Anemia, unspecified

== ENCOUNTER 2017-12-04 06:46 | Inpatient (IN) | payer OTHER ==
[2017-12-04 06:47] VITALS: BMI 30.7
[2017-12-04] MEDS ORDERED: Sodium Chloride 0.9% 1,000 ML IV ONE ×2 (07:19→09:02)
[2017-12-04] MEDS ORDERED: Sodium Chloride 0.9% 1,000 ML ONE ×2 (07:31→09:03)
[2017-12-04 07:44] LABS: BASO % 0.4 % (0.0-2.0); EOS # 0.3 K/uL (0.0-0.7); EOS % 3.8 % (0.0-4.0); HEMOGLOBIN 15.1 g/dL (11.0-16.0); LYMPH # 2.3 K/uL (1.0-4.3); LYMPH % 25.3 % (20.0-40.0); MEAN CELL VOLUME 96.4 fL (81.0-99.0); MEAN CORPUSCULAR HEMOGLOBIN 34.1 pg (27.0-31.0); MEAN CORPUSCULAR HGB CONC 35.3 g/dL (33.0-37.0); MEAN PLATELET VOLUME 9.4 fL (7.2-11.7); MONO # 0.6 K/uL (0.0-0.8); MONO % 6.4 % (0.0-10.0); NEUT # 5.8 K/uL (1.8-7.0); NEUT % 64.1 % (50.0-75.0); NRBC % 0.1 % (0.0-2.0); RBC 4.42 Mil/uL (3.80-5.20); RED CELL DISTRIBUTION WIDTH 12.7 % (11.5-14.5); WHITE BLOOD COUNT 9.1 K/uL (4.8-10.8)
[2017-12-04 08:11] LABS: ALB/GLOB RATIO 1.3 (1.0-2.1); ALBUMIN 4.4 g/dL (3.5-5.0); ALT/SGPT 14 U/L (9-52); AST/SGOT 21 U/L (14-36); BLOOD UREA NITROGEN 12 mg/dL (7-17); CALCIUM 8.8 mg/dl (8.6-10.4); GFR AFRICAN-AMERICAN > 60; GFR NON-AFRICAN AMERICAN > 60
[2017-12-04 08:15] LABS: HCG,QUALITATIVE URINE NEGATIVE (NEGATIVE)
[2017-12-04 08:18] LABS: URINE BILIRUBIN NEGATIVE (NEGATIVE); URINE BLOOD NEGATIVE (NEGATIVE); URINE CLARITY Clear (Clear); URINE COLOR YELLOW (YELLOW); URINE GLUCOSE (UA) NEGATIVE (Normal)
[2017-12-04 08:19] LABS: URINE LEUKOCYTE ESTERASE Negative Leu/uL (Negative); URINE PROTEIN NEGATIVE (NEGATIVE); URINE UROBILINOGEN 0.2 mg/dL (0.2-1.0)
[2017-12-04 08:20] LABS: SQUAMOUS EPITHIAL 10 /hpf (0-5); URINE AMORPHOUS SEDIMENT OCC /ul (<OCC); URINE BACTERIA OCC (<OCC)
--- NOTE | 2017-12-04 08:44 | US ---
HISTORY: right pelvic pain, h.o cyst. Head AP on 11/09/2017. COMPARISON: Pelvic ultrasound dated 11/15/2017. TECHNIQUE: Grayscale, color Doppler and spectral evaluation the pelvis performed transvaginally. FINDINGS: UTERUS: Measures 13.0 x 6.6 x 0.9 cm. Anteverted. Normal in size and appearance. Increase in size of of mid uterine body fibroid measuring 2.1 x 1.6 x 2.1 cm, previously measuring 1.0 x 1.2 x 2.1 cm. ENDOMETRIUM: Measures 14 mm in diameter. Unremarkable. CERVIX: No cervical abnormality identified. RIGHT OVARY: Measures 16.0 x 12.7 x 17.7 cm. Grossly stable large cyst measuring 13.4 x 11.6 x 14.6 cm, previously measuring 14.7 x 9.9 x 14.2 cm. Normal flow. LEFT OVARY: Measures 3.6 x 2.2 x 3.9 cm. Dominant cyst/follicle measuring 1.9 x 1.8 x 1.6 cm. Normal flow. FREE FLUID: No significant free fluid noted. OTHER FINDINGS: None. IMPRESSION: Slight increase in size of mid uterine body fibroid measuring 2.1 cm. Grossly stable large right ovarian cyst measured up to 14.6 cm.
--- NOTE | 2017-12-04 08:59 | C.PDOC ---
History Of Present Illness 37-year-old female, presents to the emergency department with complaints of right pelvic and suprapubic pain. Associated symptoms include urinary frequency , urgency and dysuria for the past three days. Patient states she is one month post- normal vaginal delivery 11/09/17, and has been experiencing this pain intermittently since. She was evaluated by her doctor and advised to take Tylenol which she is taking with minimal relief. Reports nausea. Denies vomiting , fever or chills. Time Seen by Provider: 12/04/17 07:07 Chief Complaint (Nursing): Female Genitourinary History Per: Patient History/Exam Limitations: no limitations Onset/Duration Of Symptoms: Days Current Symptoms Are (Timing): Still Present Severity: Moderate Past Medical History Reviewed: Historical Data, Nursing Documentation, Vital Signs Vital Signs: Last Vital Signs Temp 99.7 F H 12/04/17 11:57 Pulse 86 12/04/17 11:57 Resp 16 12/04/17 11:57 BP 125/76 12/04/17 11:57 Pulse Ox 99 12/04/17 13:57 - Medical History PMH: Anemia, Cardia Arrhythmia (tachycardia), Hyperthyroidism, Hypothyroidism Denies: Depression, Diabetes - [facility] Procedures DELIVERY OF PRODUCTS OF CONCEPTION, EXTERNAL APPROACH (11/09/17) REPAIR PERINEUM SKIN, EXTERNAL APPROACH (11/09/17) Family History: States: Diabetes, Hypertension - Social History Hx Tobacco Use: No Hx Alcohol Use: No Hx Substance Use: No - Immunization History Hx Tetanus Toxoid Vaccination: Yes Hx Influenza Vaccination: Yes Hx Pneumococcal Vaccination: Yes Review Of Systems Except As Marked, All Systems Reviewed And Found Negative. Constitutional: Negative for: Fever, Chills Gastrointestinal: Negative for: Nausea, Vomiting Genitourinary: Positive for: Dysuria, Frequency (+urgency), Pelvic Pain Musculoskeletal: Negative for: Back Pain Neurological: Negative for: Weakness, Numbness Physical Exam - Physical Exam Appears: Non-toxic, Other (uncomfortable in pain) Skin: Warm, Dry, No Diaphoretic, No Rash Head: Atraumatic, Normacephalic Eye(s): bilateral: Normal Inspection, EOMI Nose: Normal Oral Mucosa: Moist Lips: Normal Appearing Neck: Normal ROM Chest: Symmetrical Cardiovascular: Rhythm Regular, No Murmur Respiratory: Normal Breath Sounds, No Accessory Muscle Use Gastrointestinal/Abdominal: Soft, Tenderness (suprapubic and RLQ), Distention ( mild), No Guarding, No Rebound Pelvic: Vaginal Discharge (white, scant), No Cervical Motion Tenderness, No Cervix Open, No Mass Extremity: Normal ROM, No Deformity, No Swelling Neurological/Psych: Oriented x3, Normal Speech ED Course And Treatment - Laboratory Results Result Diagrams: 12/04/17 07:40 12/04/17 07:40 Lab Interpretation: No Acute Changes O2 Sat by Pulse Oximetry: 99 (RA) Pulse Ox Interpretation: Normal - CT Scan/US US transvaginal Other Rad Studies (CT/US): Read By Radiologist, Radiology Report Reviewed CT/US Interpretation: Accession No. : [id number]. Patient Name / ID : ARTI STARK / [id number]. Exam Date : 12/04/2017 08:16:11 ( Approved ) . Study Comment : Sex / Age : F / 37Y. Creator : Artemio Barton MD. Dictator : Artemio Barton MD. Domestic Violence Counselor : Draw Press Operator : Artemio Barton MD. Approver2 : Report Date : 12/04/2017 08:43:21. My Comment : . HISTORY: right pelvic pain, h.o cyst. Head AP on 11/09/2017. COMPARISON: Pelvic ultrasound dated 11/15/2017. TECHNIQUE: Grayscale, color Doppler and spectral evaluation the pelvis performed transvaginally. FINDINGS: UTERUS: Measures 13.0 x 6.6 x 0.9 cm. Anteverted. Normal in size and appearance. Increase in size of of mid uterine body fibroid measuring 2.1 x 1.6 x 2.1 cm, previously measuring 1.0 x 1.2 x 2.1 cm. ENDOMETRIUM: Measures 14 mm in diameter. Unremarkable. CERVIX: No cervical abnormality identified. RIGHT OVARY: Measures 16.0 x 12.7 x 17.7 cm. Grossly stable large cyst measuring 13.4 x 11.6 x 14.6 cm, previously measuring 14.7 x 9.9 x 14.2 cm. Normal flow. LEFT OVARY: Measures 3.6 x 2.2 x 3.9 cm. Dominant cyst/follicle measuring 1.9 x 1.8 x 1.6 cm. Normal flow. FREE FLUID: No significant free fluid noted. OTHER FINDINGS: None. IMPRESSION: Slight increase in size of mid uterine body fibroid measuring 2.1 cm. Grossly stable large right ovarian cyst measured up to 14.6 cm. abd/pelvis Other Rad Studies (CT/US): Read By Radiologist, Radiology Report Reviewed CT/US Interpretation: Accession No. : [id number]. Patient Name / ID : ARTI Echeverria / [id number]. Exam Date : 12/04/2017 10:13:12 ( Approved ). Study Comment : Sex / Age : F / 37Y. Creator : Lyndsay Lomeli. Dictator : Artemio Barton MD. Domestic Violence Counselor : Draw Press Operator : Artemio Barton MD. Approver2 : Report Date : 12/04/2017 10:25:57. My Comment : . PROCEDURE: CT Abdomen and Pelvis without intravenous contrast. HISTORY: right flank pain and RLQ. COMPARISON: Correlation with a pelvic ultrasound performed earlier the same day. TECHNIQUE: Contiguous images were obtained from the domes of the diaphragms to the upper thighs without the administration of intravenous contrast. Oral contrast was not administered. Radiation dose: Total exam DLP = 736.8 mGy-cm. This CT exam was performed using one or more of the following dose reduction techniques: Automated exposure control, adjustment of the mA and/or kV according to patient size, and/or use of iterative reconstruction technique. FINDINGS: LOWER THORAX: Unremarkable. LIVER: Subcapsular segment II 0.9 x 0.6 cm cyst/ hemangioma. No gross lesion or ductal dilatation. GALLBLADDER AND BILE DUCTS: Unremarkable. PANCREAS: Unremarkable. No gross lesion or ductal dilatation. SPLEEN: Unremarkable. ADRENALS: Unremarkable. No mass. KIDNEYS AND URETERS: Left interpolar and lower pole 3 mm nonobstructive calculi. No hydronephrosis. No solid mass. VASCULATURE: Unremarkable. No aortic aneurysm. BOWEL: Unremarkable. No obstruction. No gross mural thickening. APPENDIX: Unremarkable. Normal appendix. PERITONEUM: Diastasis of the rectus muscles with protrusion of intra -abdominal fat and the large right ovarian cyst and thinning of the anterior abdominal wall subcutaneous fat. No free fluid. No free air. LYMPH NODES: Unremarkable. No enlarged lymph nodes. BLADDER: Unremarkable. REPRODUCTIVE: Large right ovarian cyst measuring 14.8 x 12.4 x 14.5 cm. BONES: No acute fracture. OTHER FINDINGS: None. IMPRESSION: Left interpolar and lower pole 3 mm nonobstructive calculi. No obstructive uropathy or evidence of recently passed genitourinary calculus. Large right ovarian cyst measuring up to 14.8 cm. Please note the vascular pedicle cannot be assessed on a noncontrast examination. Normal appendix. Additional findings as above. Medical Decision Making Medical Decision Making: Impression: Suprapubic pain, dysuria Plan: * Bloodwork * Pyridium, IVF, Toradol * US Transvaginal * UA/HCG Progress: Labs WNL, urine clean Patient continues to have pain after Toradol. Morphine was ordered but the patient declined stating it makes her very nauseous Patient continued to have pain I ordered additionaly IVF and Zofran so patient would take the Morphine. US Slight increase in size of mid uterine body fibroid measuring 2.1 cm. Grossly stable large right ovarian cyst measured up to 14.6 cm. Grossly stable large cyst measuring 13.4 x 11.6 x 14.6 cm, previously measuring 14.7 x 9.9 x 14.2 cm. Normal flow. Will order CT for further eval of RLQ abd pain CT shows large right ovarian cyst measuring up to 14.8 cm. Please note the vascular pedicle cannot be assessed on a noncontrast examination. Patient starting to feel very mild relief, but uncomfortable when sitting or even walking. Will consult OB [id number] Low for consult Dr Low to the ED to evaluated patient and will take her to the OR Disposition - Disposition Disposition: HOSPITALIZED Disposition Time: 11:20 Condition: FAIR - POA Present On Arrival: None - Clinical Impression Clinical Impression: Right ovarian cyst, Pain in joint involving right pelvic region and thigh - Scribe Statement The provider has reviewed the documentation as recorded by the Scribe (Lion Stein) All medical record entries made by the Scribe were at my direction and personally dictated by me. I have reviewed the chart and agree that the record accurately reflects my personal performance of the history, physical exam, medical decision making, and the department course for this patient. I have also personally directed, reviewed, and agree with the discharge instructions and disposition. Decision To Admit - InPatient: Physician Admission Certification: I certify that this patient requires 2 or more midnights of care for the following reason:: Patient with acute pelvic pain and large right ovarian cyst with high risk for torsion will admit to OB/ MANAGER OF PLANNING service and patient going to OR for surgical excision - . Bed Request Type: BEDSPREAD CUTTER Admitting Physician: Landen Low Patient Diagnosis: Right ovarian cyst, Acute pelvic pain
[2017-12-04] MEDS ORDERED: Morphine 4 MG/ML VIAL ONE (09:02)
--- NOTE | 2017-12-04 10:43 | CT ---
PROCEDURE: CT Abdomen and Pelvis without intravenous contrast HISTORY: right flank pain and RLQ COMPARISON: Correlation with a pelvic ultrasound performed earlier the same day. TECHNIQUE: Contiguous images were obtained from the domes of the diaphragms to the upper thighs without the administration of intravenous contrast. Oral contrast was not administered. Radiation dose: Total exam DLP = 736.8 mGy-cm. This CT exam was performed using one or more of the following dose reduction techniques: Automated exposure control, adjustment of the mA and/or kV according to patient size, and/or use of iterative reconstruction technique. FINDINGS: LOWER THORAX: Unremarkable. LIVER: Subcapsular segment II 0.9 x 0.6 cm cyst/ hemangioma. No gross lesion or ductal dilatation. GALLBLADDER AND BILE DUCTS: Unremarkable. PANCREAS: Unremarkable. No gross lesion or ductal dilatation. SPLEEN: Unremarkable. ADRENALS: Unremarkable. No mass. KIDNEYS AND URETERS: Left interpolar and lower pole 3 mm nonobstructive calculi. No hydronephrosis. No solid mass. VASCULATURE: Unremarkable. No aortic aneurysm. BOWEL: Unremarkable. No obstruction. No gross mural thickening. APPENDIX: Unremarkable. Normal appendix. PERITONEUM: Diastasis of the rectus muscles with protrusion of intra-abdominal fat and the large right ovarian cyst and thinning of the anterior abdominal wall subcutaneous fat. No free fluid. No free air. LYMPH NODES: Unremarkable. No enlarged lymph nodes. BLADDER: Unremarkable. REPRODUCTIVE: Large right ovarian cyst measuring 14.8 x 12.4 x 14.5 cm. BONES: No acute fracture. OTHER FINDINGS: None. IMPRESSION: Left interpolar and lower pole 3 mm nonobstructive calculi. No obstructive uropathy or evidence of recently passed genitourinary calculus. Large right ovarian cyst measuring up to 14.8 cm. Please note the vascular pedicle cannot be assessed on a noncontrast examination. Normal appendix. Additional findings as above.
--- NOTE | 2017-12-04 11:57 | CP.PCM.HP ---
History of Present Illness - History of Present Illness History of Present Illness: Patient is a 37 year old female with a history of hyperthyroidism, who presents to the ED with complaints of abdominal pain that radiates to her back and right leg for the last 3 weeks. Patient is , status post uncomplicated vaginal delivery on November 09, 2017. Patient recently went to the ER on 11/15 due to the abdominal pain. The patient was given pain medication and sent home. She reports the pain comes and goes daily, is worse with movement, walking, and sitting, and minimally improves with Tylenol. Her pain has progressively increased, which brought her to the ED today. She also reports associated nausea , vomiting, and dysuria. The patient reports she has a large right ovarian cyst. She spoke with a doctor at [facility] on 11/20 who ordered an MRI for 12/12 and a follow up appointment on 12/13, however no surgery at the time. The patient currently denies chest pain, dyspnea, palpitations, dizziness, vomiting, fevers, headaches, leg pain and swelling, diarrhea, and constipation. PMHx: Hyperthyroidism, anemia (in 2017, resolved) SurgHx: denies OBGynHx: ; uncomplicated vaginal deliveries; menarche at age 14; normal monthly periods w/normal blood loss. Hx of 1 abnormal pap smear ~10years ago; denies hx of STIs. Hx of IUD for 6 years, removed 2017. FamHx: Grandmothers- HTN, Thyroid disorders, breast cancer; uncle-stomach cancer SocHx: denies tobacco, alcohol and drug use; lives in [place] with family; works as a trading manager Medications: Methimazole 5mg PO daily; vitamin D daily, vitamins Allergies: NKDA Present on Admission - Present on Admission Any Indicators Present on Admission: No Review of Systems - Constitutional Constitutional: absent: Fever, Headache, Weakness - EENT Ears: absent: Dizziness - Cardiovascular Cardiovascular: absent: Chest Pain, Dyspnea, Leg Edema, Lightheadedness, Palpitations - Respiratory Respiratory: absent: Cough, Dyspnea - Gastrointestinal Gastrointestinal: Abdominal Pain (RLQ, pelvic), Nausea, Vomiting. absent: Constipation, Diarrhea - Genitourinary Genitourinary: Dysuria, Urinary Frequency. absent: Flank Pain, Hematuria - Reproductive: Female Reproductive:Female: Pelvic Pain (Right sided). absent: Abnormal Vaginal Bleeding, Vaginal Pruritis - Musculoskeletal Musculoskeletal: Back Pain (right sided) - Neurological Neurological: absent: Dizziness, Headaches, Paresthesias, Tingling, Weakness - Endocrine Endocrine: absent: Palpitations Past Patient History - Infectious Disease Hx of Infectious Diseases: None - Past Social History Smoking Status: Never Smoked - CARDIAC Hx Cardia Arrhythmia: Yes (tachycardia) - ENDOCRINE/METABOLIC Hx Hyperthyroidism: Yes Hx Hypothyroidism: Yes - HEMATOLOGICAL/ONCOLOGICAL Hx Anemia: Yes - GASTROINTESTINAL Other/Comment: H. Pylori - PSYCHIATRIC Hx Depression: No Hx Substance Use: No - SURGICAL HISTORY Hx Surgeries: No - ANESTHESIA Hx Anesthesia: No Meds Allergies/Adverse Reactions: Allergies Allergy/AdvReac Type Severity Reaction Status Date / Time No Known Allergies Allergy Verified 12/04/17 06:55 Physical Exam - Constitutional Appears: No Acute Distress - Head Exam Head Exam: ATRAUMATIC, NORMAL INSPECTION - Eye Exam Eye Exam: EOMI, Normal appearance - ENT Exam ENT Exam: Mucous Membranes Moist - Respiratory Exam Respiratory Exam: Clear to Auscultation Bilateral, NORMAL BREATHING PATTERN. absent: Rhonchi, Wheezes, Respiratory Distress - Cardiovascular Exam Cardiovascular Exam: REGULAR RHYTHM, +S1, +S2. absent: Bradycardia, Tachycardia - GI/Abdominal Exam GI & Abdominal Exam: Distended (mild; ), Normal Bowel Sounds, Soft, Tenderness (most severe RLQ). absent: Firm, Guarding, Rebound, Rigid - Extremities Exam Extremities exam: Positive for: normal inspection, pedal pulses present. Negative for: calf tenderness, pedal edema, tenderness - Neurological Exam Neurological exam: Alert, Oriented x3 - Psychiatric Exam Psychiatric exam: Normal Affect, Normal Mood - Skin Skin Exam: Dry, Intact, Normal Color, Warm Results - Vital Signs Recent Vital Signs: Last Vital Signs Temp 98.6 F 12/04/17 06:56 Pulse 89 12/04/17 06:56 Resp 18 12/04/17 06:56 BP 136/85 12/04/17 06:56 Pulse Ox 99 12/04/17 10:56 - Labs Result Diagrams: 12/04/17 07:40 12/04/17 07:40 Labs: Laboratory Results - last 24 hr 12/04/17 12/04/17 12/04/17 07:40 07:40 07:51 WBC 9.1 RBC 4.42 Hgb 15.1 Hct 42.6 MCV 96.4 MCH 34.1 H MCHC 35.3 RDW 12.7 Plt Count 271 MPV 9.4 Neut % (Auto) 64.1 Lymph % (Auto) 25.3 [place] % (Auto) 6.4 Eos % (Auto) 3.8 Baso % (Auto) 0.4 Neut # (Auto) 5.8 Lymph # (Auto) 2.3 [place] # (Auto) 0.6 Eos # (Auto) 0.3 Baso # (Auto) 0.0 Sodium 141 Potassium 4.0 Chloride 103 Carbon Dioxide 24 Anion Gap 18 BUN 12 Creatinine 0.7 Est GFR ( Amer) > 60 Est GFR (Non-Af Amer) > 60 Random Glucose 97 Calcium 8.8 Total Bilirubin 0.7 AST 21 ALT 14 Alkaline Phosphatase 84 Total Protein 7.9 Albumin 4.4 Globulin 3.4 Albumin/Globulin Ratio 1.3 Urine Color Yellow Urine Clarity Clear Urine pH 6.0 Ur Specific [place] 1.025 Urine Protein Negative Urine Glucose (UA) Negative Urine Ketones Negative Urine Blood Negative Urine Nitrate Negative Urine Bilirubin Negative Urine Urobilinogen 0.2 Ur Leukocyte Esterase Negative Urine WBC (Auto) 3 Urine RBC (Auto) 1 Ur Squamous Epith Cells 10 H Amorphous Sediment Occ H Urine Bacteria Occ H Urine HCG, Qual Negative Assessment & Plan (1) Ovarian cyst Assessment and Plan: 37 year old female with 14.6cm right ovarian cyst. Tranvaginal US (12/04/17): slight increase in size of mid uterine body fibroid 2.1 cm; grossly stable large right ovarian cyst 14.6cm. Abdominal/Pelvic CT (12/04/17): large right ovarian cyst measuring up to 14.8cm; left interpolar and ower pole 3mm nonobstructive calculi; no obstructive uropathy. Ca125 ordered, f//u results Patient scheduled for OR, consent signed, anesthesia aware. Possible right salpingectomy, possible right oopherectomy. Preop: - CBC, CMP within normal range - UA: occ bacteria,10 squam epith cells - NPO - Type and cross - Coags Status: Acute (2) Hyperthyroidism Assessment and Plan: Continue home medication: Methimazole 5mg PO daily Status: Acute
[2017-12-04] MEDS ORDERED: Midazolam 2 MG/2 ML VIAL ONE (12:01)
[2017-12-04] MEDS ORDERED: cefOXitin IV 1 gm in Dextrose 0 GM/0 ML BAG IVPB ONE (12:02)
[2017-12-04] MEDS ORDERED: Propofol 10 mg/ml Inj (20 ML) ONE (12:02)
[2017-12-04] MEDS ORDERED: Succinylcholine Chloride 20 mg/ml Syr (5 ml) IV ONE (12:04)
[2017-12-04] MEDS ORDERED: Rocuronium 10 mg/ml (5 ml) ONE (12:04)
[2017-12-04 12:09] LABS: PROTHROMBIN TIME 11.7 SECONDS (9.7-12.2)
[2017-12-04] MEDS ORDERED: Lactated Ringer's 1,000 ML IV ONE ×3 (12:30→13:20)
[2017-12-04] MEDS ORDERED: ceFAZolin 1 gm in NS 2 GM/200 ML BAG IVPB ONE (12:50)
[2017-12-04] MEDS ORDERED: Neostigmine Methylsulfate 3mg/3ml Syringe IV ONE (13:18)
[2017-12-04] MEDS ORDERED: Morphine 4 MG/ML VIAL IVP PRN (13:51)
[2017-12-04] MEDS ORDERED: Morphine Monoject Barrel PCA 1mg/ml IV PRN ×2 (13:52→14:30)
--- NOTE | 2017-12-04 13:57 | PCM.SURG1 ---
Surgeon's Initial Post Op Note - Surgeon's Notes Surgeon: dr lee Floor Cashier: dr avila Type of Anesthesia: General LMA Anesthesia Administered By: dr villanueva Pre-Operative Diagnosis: 37 yr acute pelvic pain //roght ovarian cyst Operative Findings: see the op reoert. right ovarian torsion 5 times Post-Operative Diagnosis: same with right ovarian torsion Operation Performed: ex lap right oophrectomy Specimen/Specimens Removed: right tube. and ovary Estimated Blood Loss: EBL {In ML}: 100 Blood Products Given: N/A Drains Used: No Drains Post-Op Condition: Good Date of Surgery/Procedure: 12/04/17 Time of Surgery/Procedure: 15:00
[2017-12-04] MEDS ORDERED: Oxycodone/Acetaminophen 5/325 mg Tab PO PRN (13:58)
[2017-12-04] MEDS ORDERED: Lactated Ringer's 1,000 ML IV SCH (14:00)
[2017-12-04] MEDS ORDERED: HYDROmorphone 0.5 mg/0.5 ml ISec IVP PRN (14:11)
[2017-12-05 00:46] VITALS: RESP 20
[2017-12-05] MEDS: Simethicone 80 mg Chewtab PO SCH ×5 (02:51→22:30)
[2017-12-05 06:49] VITALS: O2SAT 97
[2017-12-05 07:58] LABS: HEMOGLOBIN 13.6 g/dL (11.0-16.0); MEAN CELL VOLUME 96.9 fL (81.0-99.0); MEAN CORPUSCULAR HEMOGLOBIN 33.3 pg (27.0-31.0); MEAN CORPUSCULAR HGB CONC 34.4 g/dL (33.0-37.0); MEAN PLATELET VOLUME 9.2 fL (7.2-11.7); RBC 4.1 Mil/uL (3.80-5.20); RED CELL DISTRIBUTION WIDTH 12.7 % (11.5-14.5); WHITE BLOOD COUNT 12.5 K/uL (4.8-10.8)
[2017-12-05] MEDS: methIMAzole 5 MG TAB PO SCH (09:08)
--- NOTE | 2017-12-05 10:38 | CP.PCM.PN ---
<Marva Casper - Last Filed: 12/05/17 10:35> Subjective - Date & Time of Evaluation Date of Evaluation: 12/05/17 Time of Evaluation: 10:35 - Subjective Subjective: Patient was seen and examined at bedside in no acute distress. Patient was OOB to chair. Patient complains of mild post-op pain at the surgical site, however, states she feels well. The patient is tolerating her liquid diet. Patient states she felt nausea this morning, but that was resolved with apple juice. The patient denies chest pain, dysuria, palpations, nausea, vomiting, fevers, headaches, dizziness, headaches. Objective - Vital Signs/Intake and Output Vital Signs (last 24 hours): Temp Pulse Resp BP Pulse Ox 98.9 F 78 20 95/61 L 97 12/05/17 06:48 12/05/17 06:48 12/05/17 06:48 12/05/17 06:48 12/05/17 06:48 Intake and Output: 12/05/17 12/05/17 06:59 18:59 Output Total 600 Balance -600 - Medications Medications: Current Medications Bisacodyl (Dulcolax) 10 mg PO ONCE ONE Stop: 12/05/17 14:00 Docusate Sodium (Colace) 100 mg PO BID [facility] Last Admin: 12/05/17 09:09 Dose: 100 mg Lactated Ringer's (Lactated Ringer's) 1,000 mls @ 125 mls/hr IV .Q8H [facility] Last Admin: 12/05/17 02:54 Dose: 125 mls/hr Ibuprofen (Motrin Tab) 600 mg PO Q6H PRN PRN Reason: Pain, Mild (1-3) Last Admin: 12/05/17 08:57 Dose: 600 mg Methimazole (Tapazole) 5 mg PO DAILY [facility] Last Admin: 12/05/17 09:08 Dose: 5 mg Oxycodone/Acetaminophen (Percocet 5/325 Mg Tab) 1 tab PO Q4H PRN PRN Reason: Pain, moderate (4-7) Stop: 12/07/17 13:59 Oxycodone/Acetaminophen (Percocet 5/325 Mg Tab) 2 tab PO Q4H PRN PRN Reason: Pain, severe (8-10) Stop: 12/07/17 13:59 Simethicone (Mylicon Chew Tab) 80 mg PO QID [facility] Last Admin: 12/05/17 09:00 Dose: 80 mg - Labs Labs: 12/05/17 07:49 12/04/17 07:40 PT 11.7 SECONDS (9.7-12.2) 12/04/17 11:50 INR 1.0 12/04/17 11:50 APTT 33 SECONDS (21-34) 12/04/17 11:50 - Constitutional Appears: No Acute Distress - Head Exam Head Exam: ATRAUMATIC, NORMAL INSPECTION - Eye Exam Eye Exam: EOMI, Normal appearance - ENT Exam ENT Exam: Mucous Membranes Moist - Respiratory Exam Respiratory Exam: Clear to Ausculation Bilateral, NORMAL BREATHING PATTERN. absent: Rales, Rhonchi, Wheezes, Respiratory Distress - Cardiovascular Exam Cardiovascular Exam: REGULAR RHYTHM, +S1, +S2 - GI/Abdominal Exam GI & Abdominal Exam: Tenderness (s/p ex lap), Normal Bowel Sounds. absent: Distended Additional comments: dressing clean, dry, and intact. - Extremities Exam Extremities Exam: Normal Inspection. absent: Calf Tenderness, Pedal Edema, Tenderness - Neurological Exam Neurological Exam: Alert, Awake, Oriented x3 - Psychiatric Exam Psychiatric exam: Normal Affect, Normal Mood - Skin Skin Exam: Dry, Intact, Normal Color, Warm Assessment and Plan (1) Ovarian cyst Status: Acute (2) Hyperthyroidism Status: Acute - Assessment and Plan (Free Text) Plan: Assessment & Plan (1) Ovarian Cyst, Ovarian Torsion Assessment and Plan: 37 year old female with 14.6cm right ovarian cyst, s/p ex lap right oopherectomy. POD#1 * Tranvaginal US (12/04/17): slight increase in size of mid uterine body fibroid 2.1 cm; grossly stable large right ovarian cyst 14.6cm. * Abdominal/Pelvic CT (12/04/17): large right ovarian cyst measuring up to 14.8cm ; left interpolar and ower pole 3mm nonobstructive calculi; no obstructive uropathy. * Ca125 within normal limits Continue Ibuprofen for mild-moderate pain. Continue Percocet for severe pain. Continue IVF. Continue Colace 100mg PO BID for constipation. Patient tolerated liquid diet. Advancing diet to soft regular. Advance as tolerated. Evans discontinued. Encouraged ambulation. (2) Hyperthyroidism Assessment and Plan: Continue home medication: Methimazole 5mg PO daily <Maria Elena Scherer - Last Filed: 12/05/17 17:36> Objective - Vital Signs/Intake and Output Vital Signs (last 24 hours): Temp Pulse Resp BP Pulse Ox 98.9 F 61 20 101/63 97 12/05/17 16:00 12/05/17 16:00 12/05/17 16:00 12/05/17 16:00 12/05/17 16:00 Intake and Output: 12/05/17 12/05/17 06:59 18:59 Output Total 600 Balance -600 - Medications Medications: Current Medications Docusate Sodium (Colace) 100 mg PO BID [facility] Last Admin: 12/05/17 09:09 Dose: 100 mg Lactated Ringer's (Lactated Ringer's) 1,000 mls @ 125 mls/hr IV .Q8H [facility] Last Admin: 12/05/17 02:54 Dose: 125 mls/hr Ibuprofen (Motrin Tab) 600 mg PO Q6H PRN PRN Reason: Pain, Mild (1-3) Last Admin: 12/05/17 08:57 Dose: 600 mg Methimazole (Tapazole) 5 mg PO DAILY [facility] Last Admin: 12/05/17 09:08 Dose: 5 mg Oxycodone/Acetaminophen (Percocet 5/325 Mg Tab) 1 tab PO Q4H PRN PRN Reason: Pain, moderate (4-7) Stop: 12/07/17 13:59 Oxycodone/Acetaminophen (Percocet 5/325 Mg Tab) 2 tab PO Q4H PRN PRN Reason: Pain, severe (8-10) Stop: 12/07/17 13:59 Simethicone (Mylicon Chew Tab) 80 mg PO QID [facility] Last Admin: 12/05/17 09:00 Dose: 80 mg - Labs Labs: 12/05/17 07:49 12/04/17 07:40 PT 11.7 SECONDS (9.7-12.2) 12/04/17 11:50 INR 1.0 12/04/17 11:50 APTT 33 SECONDS (21-34) 12/04/17 11:50 Assessment and Plan - Assessment and Plan (Free Text) Plan: agree with above pt seen adn examiend with residnet pt preorts pain contolled iwth medication pt ambiating, not yet passign flatus, toelratign diet plan pain amangmnet regualr diet bowel regimen am labs
[2017-12-05] MEDS ORDERED: Bisacodyl 5mg EC Tab PO ONE (13:59)
--- NOTE | 2017-12-06 07:33 | CP.PCM.PN ---
<Marva CasperMarko - Last Filed: 12/06/17 08:19> Subjective - Date & Time of Evaluation Date of Evaluation: 12/06/17 Time of Evaluation: 07:33 - Subjective Subjective: Patient was seen and examined at bedside in no acute distress. Patient reports her pain has decreased and is currently minimal, however, she is complaining of diarrhea. She has had 4 episodes of diarrhea since yesterday that occurs after eating. Patient did receive colace BID and dulcolax for constipation yesterday. The patient reports no difficulty ambulating. Patient denies chest pain, dyspnea, nausea, vomiting, fevers, headache, leg pain/swelling. Objective - Vital Signs/Intake and Output Vital Signs (last 24 hours): Temp Pulse Resp BP Pulse Ox 97.0 F L 66 20 113/73 97 12/06/17 00:00 12/06/17 00:00 12/06/17 00:00 12/06/17 00:00 12/05/17 16:00 - Medications Medications: Current Medications Docusate Sodium (Colace) 100 mg PO BID [facility] Last Admin: 12/05/17 18:19 Dose: 100 mg Lactated Ringer's (Lactated Ringer's) 1,000 mls @ 125 mls/hr IV .Q8H [facility] Last Admin: 12/05/17 02:54 Dose: 125 mls/hr Ibuprofen (Motrin Tab) 600 mg PO Q6H PRN PRN Reason: Pain, Mild (1-3) Last Admin: 12/05/17 18:19 Dose: 600 mg Methimazole (Tapazole) 5 mg PO DAILY [facility] Last Admin: 12/05/17 09:08 Dose: 5 mg Oxycodone/Acetaminophen (Percocet 5/325 Mg Tab) 1 tab PO Q4H PRN PRN Reason: Pain, moderate (4-7) Stop: 12/07/17 13:59 Oxycodone/Acetaminophen (Percocet 5/325 Mg Tab) 2 tab PO Q4H PRN PRN Reason: Pain, severe (8-10) Stop: 12/07/17 13:59 Simethicone (Mylicon Chew Tab) 80 mg PO QID [facility] Last Admin: 12/05/17 22:30 Dose: 80 mg - Labs Labs: 12/05/17 07:49 12/04/17 07:40 PT 11.7 SECONDS (9.7-12.2) 12/04/17 11:50 INR 1.0 12/04/17 11:50 APTT 33 SECONDS (21-34) 12/04/17 11:50 - Constitutional Appears: No Acute Distress - Head Exam Head Exam: ATRAUMATIC, NORMAL INSPECTION - Eye Exam Eye Exam: EOMI, Normal appearance - ENT Exam ENT Exam: Mucous Membranes Moist - Respiratory Exam Respiratory Exam: Clear to Ausculation Bilateral, NORMAL BREATHING PATTERN. absent: Rales, Rhonchi, Wheezes, Respiratory Distress - Cardiovascular Exam Cardiovascular Exam: REGULAR RHYTHM, +S1, +S2 - GI/Abdominal Exam GI & Abdominal Exam: Soft, Tenderness (surgical incision tenderness; dressing clean, dry, intact. stone intact. no purulent discharge noted.), Normal Bowel Sounds - Extremities Exam Extremities Exam: Normal Inspection. absent: Calf Tenderness, Pedal Edema, Tenderness - Neurological Exam Neurological Exam: Alert, Awake, Oriented x3 - Psychiatric Exam Psychiatric exam: Normal Affect, Normal Mood - Skin Skin Exam: Dry, Intact, Normal Color, Warm Assessment and Plan (1) Ovarian cyst Status: Acute (2) Hyperthyroidism Status: Acute - Assessment and Plan (Free Text) Plan: Assessment & Plan (1) Ovarian Cyst, Ovarian Torsion Assessment and Plan: 37 year old female with 14.6cm right ovarian cyst, s/p ex lap right oopherectomy. POD#1 * Tranvaginal US (12/04/17): slight increase in size of mid uterine body fibroid 2.1 cm; grossly stable large right ovarian cyst 14.6cm. * Abdominal/Pelvic CT (12/04/17): large right ovarian cyst measuring up to 14.8cm ; left interpolar and ower pole 3mm nonobstructive calculi; no obstructive uropathy. * Ca125 within normal limits Continue Ibuprofen for mild-moderate pain. Continue Percocet for severe pain. Continue IVF. Hold Colace 100mg PO BID. Advanced diet to soft regular. Advance as tolerated. Evans discontinued. Encouraged ambulation. (2) Diarrhea Assessment and Plan: Likely secondary to receiving Colace BID and Dulcolax. C.Diff ordered: f/u results (3) Hyperthyroidism Assessment and Plan: Continue home medication: Methimazole 5mg PO daily <Denis Lam S - Last Filed: 12/06/17 20:20> Subjective - Subjective Subjective: obgyn attending addendum pt seen by me and examined w/ resident. agree w/ above assessment and plan. p: after further obsevation- in late afternoon pt denies continued diarrhea. she requested discharge to she can be with . d/c home f/u in 1wk at ob clinic rx pnv, perocetl. Objective - Vital Signs/Intake and Output Vital Signs (last 24 hours): Temp Pulse Resp BP Pulse Ox 99.6 F 65 20 105/70 97 12/06/17 16:00 12/06/17 16:00 12/06/17 16:00 12/06/17 16:00 12/06/17 16:00 Intake and Output: 12/06/17 12/07/17 18:59 06:59 Intake Total 550 Balance 550 - Labs Labs: 12/06/17 08:25 12/06/17 08:25 PT 11.7 SECONDS (9.7-12.2) 12/04/17 11:50 INR 1.0 12/04/17 11:50 APTT 33 SECONDS (21-34) 12/04/17 11:50
--- NOTE | 2017-12-06 07:52 | OP ---
PROCEDURE DATE: 12/04/2017 PREOPERATIVE DIAGNOSIS: A 37-year-old 4, para 4, with acute pelvic pain and right ovarian cyst. POSTOPERATIVE DIAGNOSIS: Right ovarian torsion, 14 cm cyst. SURGEON: Landen Low MD HOSPICE NURSE: Dr. Alex, who was present throughout the procedure helping with the surgery. ANESTHESIA: General anesthesia with LMA. ANESTHESIOLOGIST: Dr. Campbell. PROCEDURE PERFORMED: Exploratory laparotomy, right oophorectomy. SPECIMENS REMOVED: Right tube and ovary. ESTIMATED BLOOD LOSS: 100 mL. COMPLICATIONS: None. DESCRIPTION OF PROCEDURE: After informed consent, the patient was brought to the operating room, placed on the table where general anesthesia was given. Once anesthesia was given, the patient was prepped and draped in normal sterile fashion. About 2 cm above the pubic bone, skin incision was made with a knife, the subcutaneous cut with a Bovie. The fascia was then excised on both the sides using curved Wasserman scissors. The fascia was from the site of the umbilicus and then at the site of the rectus muscle. Rectus muscle was , peritoneum was incised. Because, there was a right ovarian mass about 14 cm and it was twisted on itself by 5 times. After that, the left ovary was visualized as normal. After that, the decision was to exteriorize the cyst very gently. Big incision was made, it was exteriorized outside, then it was untwisted, it was all necrotic. Decision was to do right oophorectomy. The Kellys were placed and then Ethicon was used to take the suture at the IP ligament. After that suture, 3-0 chromic was used to do interrupted figure of eight, it was hemostatic. The right tube and the ovary were ____ which was about 14 cm was taken out intact. Before the procedure started, we took the pelvic washing and sent to pathology also. Left ovary was visualized normal, after that lot of irrigation was done, it was hemostatic. FloSeal was placed after that. All the laps were removed. Peritoneum was closed using 2-0 Vicryl in running interlocking fashion. The muscle was closed using 2-0 Vicryl in running interlocking fashion. The fascia was closed using 1 Vicryl in running interlocking fashion. Skin was closed using stone. The patient tolerated the procedure well. Lap, sponge, and instrument counts were correct x2. Landen Low MD
[2017-12-06 08:32] LABS: BASO % 0.3 % (0.0-2.0); EOS # 0.2 K/uL (0.0-0.7); EOS % 2.4 % (0.0-4.0); HEMOGLOBIN 12.7 g/dL (11.0-16.0); LYMPH # 1.7 K/uL (1.0-4.3); LYMPH % 23.4 % (20.0-40.0); MEAN CELL VOLUME 96.1 fL (81.0-99.0); MEAN CORPUSCULAR HEMOGLOBIN 33.6 pg (27.0-31.0); MEAN PLATELET VOLUME 9.2 fL (7.2-11.7); MONO # 0.5 K/uL (0.0-0.8); MONO % 6.2 % (0.0-10.0); NEUT # 5.1 K/uL (1.8-7.0); NEUT % 67.7 % (50.0-75.0); RBC 3.78 Mil/uL (3.80-5.20); RED CELL DISTRIBUTION WIDTH 12.5 % (11.5-14.5); WHITE BLOOD COUNT 7.5 K/uL (4.8-10.8)
[2017-12-06 09:03] LABS: ALB/GLOB RATIO 1.1 (1.0-2.1); ALBUMIN 3.3 g/dL (3.5-5.0); ALT/SGPT 18 U/L (9-52); AST/SGOT 21 U/L (14-36); BLOOD UREA NITROGEN 7 mg/dL (7-17); CALCIUM 7.9 mg/dl (8.6-10.4); GFR AFRICAN-AMERICAN > 60; GFR NON-AFRICAN AMERICAN > 60
[2017-12-06] MEDS: Oxycodone/Acetaminophen 5/325 mg Tab PO PRN ×2 (10:05→14:00)
[2017-12-06] MEDS: Simethicone 80 mg Chewtab PO SCH ×3 (10:06→17:08)
[2017-12-06] MEDS: Saccharomyces Boulardi 250 mg Cap PO SCH ×2 (10:07→17:08)
[2017-12-06] MEDS: methIMAzole 5 MG TAB PO SCH (10:12)
[2017-12-06 16:23] VITALS: BP 105/70; PULSE 65; TEMP 99.6
== END 2017-12-06 17:45 | disposition home or self-care (01) | DRG 377 ==
LOC: SUPCPDRO 06:46 → C.ER 06:46 → C.9E 11:22 → C.9S 14:10 → C.4M 18:51
PROVIDERS: ADMIT Obstetrics & Gynecology; ATTEND Obstetrics & Gynecology
PROC: 0UT00ZZ Resection of Right Ovary, Open Approach (ICD-10-PCS; 2017-12-04)
PROC: 0UT50ZZ Resection of Right Fallopian Tube, Open Approach (ICD-10-PCS; principal; 2017-12-04 11:15)
DX: O90.89 Other complications of the puerperium, not elsewhere classified (principal); E05.90 Thyrotoxicosis, unspecified without thyrotoxic crisis or storm; D27.0 Benign neoplasm of right ovary; N83.511 Torsion of right ovary and ovarian pedicle; R30.0 Dysuria; E03.9 Hypothyroidism, unspecified; K59.00 Constipation, unspecified; G89.18 Other acute postprocedural pain

== ENCOUNTER 2018-04-08 17:37 | Emergency (ER) | payer OTHER ==
[2018-04-08 17:37] VITALS: BMI 30.7
[2018-04-08 17:41] VITALS: BP 116/75; PULSE 74; RESP 19; TEMP 99.3; O2SAT 99
[2018-04-08] MEDS ORDERED: Amoxicillin-Clav 875-125 mg Tab PO STA (18:02)
--- NOTE | 2018-04-08 18:04 | C.PDOC ---
History Of Present Illness 37 yo female come in for evaluation of left earache gradually developed for past 4 days associated with nasal congestion, sore throat, (+) low grade fever. Otherwise,pt denies high fever, chills, headache, vertigo, dizziness, ear discharge, drooling, cough, CP, SOB, wheezing, abd. pain, V/D, back pain, UTI sx , denies any other active complaints. Ambulate to Ed for evaluation, not in any apparent distress. Time Seen by Provider: 04/08/18 17:58 Chief Complaint (Nursing): ENT Problem History Per: Patient Past Medical History Reviewed: Historical Data, Nursing Documentation, Vital Signs Vital Signs: Last Vital Signs Temp 99.3 F 04/08/18 17:39 Pulse 74 04/08/18 17:39 Resp 19 04/08/18 17:39 BP 116/75 04/08/18 17:39 Pulse Ox 99 04/08/18 17:39 - Medical History PMH: Anemia, Cardia Arrhythmia (tachycardia), Hyperthyroidism Denies: Depression, Diabetes, HTN - [place] Procedures DELIVERY OF PRODUCTS OF CONCEPTION, EXTERNAL APPROACH (11/09/17) REPAIR PERINEUM SKIN, EXTERNAL APPROACH (11/09/17) RESECTION OF RIGHT FALLOPIAN TUBE, OPEN APPROACH (12/04/17) RESECTION OF RIGHT OVARY, OPEN APPROACH (12/04/17) Family History: States: Unknown Family Hx, Diabetes, Hypertension - Social History Hx Tobacco Use: No Hx Alcohol Use: No Hx Substance Use: No - Immunization History Hx Tetanus Toxoid Vaccination: Yes Hx Influenza Vaccination: Yes Hx Pneumococcal Vaccination: Yes Review Of Systems Except As Marked, All Systems Reviewed And Found Negative. Constitutional: Positive for: Fever. Negative for: Chills, Malaise ENT: Positive for: Ear Pain, Nose Discharge, Nose Congestion, Throat Pain. Negative for: Ear Discharge, Throat Swelling Cardiovascular: Negative for: Chest Pain Respiratory: Positive for: Cough. Negative for: Shortness of Breath, Wheezing Gastrointestinal: Negative for: Nausea, Vomiting, Abdominal Pain, Diarrhea Musculoskeletal: Negative for: Neck Pain Skin: Negative for: Rash Neurological: Negative for: Weakness, Numbness, Headache Physical Exam - Physical Exam Appears: Well, Non-toxic, No Acute Distress Skin: Normal Color, Warm, Dry, No Rash Head: Normacephalic Eye(s): bilateral: PERRL Ear(s): Left: Normal, Right: TM Erythema, TM Dull, Other (no mastoid tenderness/ edema or erythema) Nose: No Flaring, Discharge (scant clear B/L) Oral Mucosa: Moist Tongue: Normal Appearing Lips: Normal Appearing Throat: Erythema (mild B/L), No Exudate, No Drooling Neck: Trachea Midline, Supple Cardiovascular: Rhythm Regular Respiratory: No Decreased Breath Sounds, No Accessory Muscle Use, No Stridor, No Wheezing Gastrointestinal/Abdominal: Soft, No Tenderness Back: No CVA Tenderness Extremity: Normal ROM, No Deformity, No Swelling Neurological/Psych: Oriented x3, Normal Speech ED Course And Treatment O2 Sat by Pulse Oximetry: 99 Pulse Ox Interpretation: Normal Progress Note: On re-evaluation, pt is afebrile, hemodynamicaly stable. Non- toxic. AMbulatory in ED with stable gait. Tolerate PO well in ED. PulseOx 99 % RA. Neck: Supple, (-) meningeal sign. ENT: (+) exam c/w left otitis media. No mastoid tenderness or edema or erythema. Lungs: CTA B/L, BS equal B/L. Abd : benign, (-) guarding, (-) rebound. Neurologicaly intact. Pt advised on course of ds. ref. to f/u with PMD, ENT in 1-2 days for re-eavl. return if any new changes. Disposition Counseled Patient/Family Regarding: Diagnosis, Need For Followup, Rx Given - Disposition Referrals: Jelly Goldman APN [Advanced Practice Nurse] - Harinder Hammond MD [Staff Provider] - Disposition: HOME/ ROUTINE Disposition Time: 18:03 Condition: STABLE Additional Instructions: Take medication as prescribed Avoid water exposure to Left ear Follow up with PMD, ENT in 2-3 days for re-evaluation. return to ED if any worsening or new changes. Prescriptions: Amoxicillin/Clavulanate [Augmentin 875 MG-125 MG] 1 tab PO BID #14 tab Prednisone [Deltasone] 40 mg PO DAILY #6 tablet Instructions: Ear Infections (Otitis Media) - Clinical Impression Clinical Impression: Otitis media
[2018-04-08] MEDS ORDERED: Amoxicillin-Clav 875-125 mg Tab PO ONE (18:17)
== END 2018-04-08 18:39 | disposition home or self-care (01) ==
LOC: C.ER 17:37
DX: H66.90 Otitis media, unspecified, unspecified ear (principal); E05.90 Thyrotoxicosis, unspecified without thyrotoxic crisis or storm